=== PATIENT | female | born 1965 | race African-American/Black ===

== ENCOUNTER 2018-01-20 11:07 | Emergency (ER) | payer OTHER, MEDICAID, SELFPAY ==
[2018-01-20 11:13] VITALS: BP 132/81; PULSE 91; RESP 16; TEMP 36.7; O2SAT 100; BMI 21.9
--- NOTE | 2018-01-20 11:25 | ED.HA ---
HPI - Headache General Chief Complaint: Headache Stated Complaint: MIGRAINE Time Seen by Provider: 01/20/18 11:25 Source: patient Mode of arrival: ambulatory Limitations: no limitations History of Present Illness HPI Narrative: Patient is a 53-year-old female with history of migraine headaches. She feels like this is a typical migraine headache she normally gets Toradol for a however does not have it. She denies any weakness no visual problems, no facial droop. Related Data Home Medications Medication Instructions Recorded Confirmed calcium carbonate [Tums] 500 mg PO BIDP PRN #0 05/27/17 01/20/18 lactulose 20 gm PO QDAY #0 05/27/17 01/20/18 amitriptyline 100 mg PO BEDTIME 01/20/18 01/20/18 citalopram 10 mg PO BID 01/20/18 01/20/18 diazepam 10 mg PO DIRECTED 01/20/18 01/20/18 gabapentin 300 mg PO DIRECTED 01/20/18 01/20/18 ketorolac 1 dose IM DIRECTED 01/20/18 01/20/18 trazodone 200 mg PO BEDTIME 01/20/18 01/20/18 Previous Rx's Medication Instructions Recorded albuterol sulfate [Ventolin HFA] 2 puff INH QIDP PRN #2 ea 07/30/17 polyethylene glycol 3350 [Miralax] 17 gm PO QDAY #1 bot 07/30/17 potassium chloride 10 meq PO QDAY #30 cap 07/30/17 [LDN] 1.5 mg PO HS #60 cap 09/16/17 baclofen 10 mg PO BID PRN #60 tab 09/16/17 docusate sodium 250 mg PO BID #60 cap 09/16/17 omeprazole 40 mg PO QDAY #90 cap 09/16/17 pramipexole [Mirapex] 0.25 mg PO QPM #30 tab 09/16/17 meclizine 25 mg PO TIDP PRN #60 tab 11/02/17 ranitidine 150 mg capsule 150 mg PO BID #60 cap 11/27/17 carisoprodol 350 mg tablet 350 mg PO TID PRN #90 tab MDD 4/day 12/02/17 tramadol 50 mg tablet 100 mg PO Q6HP PRN #240 tab 12/02/17 ondansetron [Zofran ODT] 4 mg SUBLINGUAL Q6HP PRN #15 odt 12/30/17 lidocaine viscous/antacid 10 ml PO QID PRN #120 ml 12/31/17 lorazepam 1 mg tablet 1 mg PO BIDP PRN #30 tab 12/31/17 oxycodone 5 mg tablet 5 mg PO Q6HP PRN #120 tab 12/31/17 Allergies Allergy/AdvReac Type Severity Reaction Status Date / Time droperidol [DROPERIDOL] Allergy Severe throat Verified 12/31/17 14:12 swelling sumatriptan [From IMITREX] Allergy Severe throat Verified 12/31/17 14:12 swelling prochlorperazine Allergy Unknown Verified 12/31/17 14:12 [From COMPAZINE] Review of Systems Review of Systems GENERAL: Denies chills, fatigue, malaise, fever, sweats, travel HEENT: Denies sinus pain, ear pain, sore throat, difficulty swallowing, neck pain RESPIRATORY: Denies dyspnea, cough, wheezing, hemoptysis, sputum. CARDIOVASCULAR: Denies chest pain, palpitations, orthopnea, edema GASTROINTESTINAL: Denies nausea, vomiting, abdominal pain, diarrhea, constipation, melena. : Denies dysuria, frequency, incontinence, hematuria, urinary retention, flank pain. MUSCULOSKELETAL: Denies weakness, joint pain, or bony pain SKIN: No rash, no erythema, no pruritus NEUROLOGIC: See HPI PSYCHIATRIC: No concerning psychosocial issues. 12 point review of systems is negative except for those stated above and HPI [facility] Social History Smoking Status: Current some day smoker Exam Initial Vital Signs Initial Vital Signs: Vital Signs Temperature 98.1 F 01/20/18 11:13 Pulse Rate 91 H 01/20/18 11:13 Respiratory Rate 16 01/20/18 11:13 Blood Pressure 132/81 H 01/20/18 11:13 Pulse Oximetry 100 01/20/18 11:13 GENERAL: A thin chronically ill female appears older than stated age HEENT: Head atraumatic,EOMI, pupils reactive, face symmetric, neck is supple no meningeal sign CARDIOVASCULAR: Regular rate and rhythm without murmurs, rubs or gallops. RESPIRATORY: Breath sounds equal bilaterally, no wheezes rales or rhonchi. ABDOMEN: Soft, nontender. Normoactive bowel sounds all 4 quadrants. No guarding or rebound. EXTREMITIES: Normal range of motion, no clubbing or edema. Neurovascularly intact NEUROLOGICAL: Alert and oriented x4.Normal gait and speech. Cranial nerves II through XII grossly intact. Gait and speech normal in the ED strength equal in all extremities SKIN: Warm, dry, no laceration, no petechiae, no rashes or lesions. Course Orders Ordered: Discontinued Medications Hydromorphone HCl (Dilaudid) 1 mg IV NOW ONE Stop: 01/20/18 13:25 Last Admin: 01/20/18 13:28 Dose: 1 mg Hydromorphone HCl (Dilaudid) 0.5 mg IV NOW ONE Stop: 01/20/18 14:15 Last Admin: 01/20/18 14:19 Dose: 0.5 mg Sodium Chloride (Normal Saline 0.9%) 1,000 mls @ 1,000 mls/hr IV BOLUS ONE Stop: 01/20/18 13:39 Last Admin: 01/20/18 12:43 Dose: 1,000 mls/hr Sodium Chloride (Normal Saline 0.9%) 1,000 mls @ 1,000 mls/hr IV BOLUS ONE Stop: 01/20/18 13:29 Last Admin: 01/20/18 14:20 Dose: Ketamine HCl (Ketalar) 5 mg IV NOW ONE Stop: 01/20/18 12:31 Last Admin: 01/20/18 13:26 Dose: Ketorolac Tromethamine (Toradol) 60 mg IM NOW ONE Stop: 01/20/18 11:26 Last Admin: 01/20/18 11:30 Dose: 60 mg Ondansetron HCl (Zofran) 4 mg IV NOW ONE Stop: 01/20/18 12:40 Last Admin: 01/20/18 12:43 Dose: 4 mg Vital Signs - 8 hr 01/20/18 11:13 01/20/18 12:08 01/20/18 14:28 Temperature 98.1 F Pulse Rate 91 H 88 79 Respiratory Rate 16 14 16 Blood Pressure 132/81 H 171/95 H Blood Pressure [Right Arm] 188/81 H Pulse Oximetry 100 99 100 MDM - Headache MDM Narrative Medical decision making narrative: Patient id not have much improvement with Toradol. At this time IV placed Dilaudid is given. She has a ride home caregiver with her Discharge Plan Departure Patient Disposition: Home, Self-Care Clinical Impression: Migraine Discharge Date/Time: 01/20/18 14:29 Interventions: ED Discharge Assessment Last Done: 01/20/18 14:28 Instructions: DI for Migraine Activity Restrictions/Additional Instructions: *You have been diagnosed with Migraine *Continue to take medications as directed *Follow up with your primary care provider in 2-3 days *Return to ER if you should have any new, worsening or concerning symptoms Prescriptions: No Action carisoprodol 350 mg tablet 350 mg PO TID MDD 4/day PRN (Reason: ms pain) Qty: 90 RF: 3 tramadol 50 mg tablet 100 mg PO Q6HP PRN (Reason: pain) Qty: 240 RF: 3 lidocaine viscous/antacid 10 ml PO QID PRN (Reason: upset stomach) Qty: 120 RF: 0 oxycodone 5 mg tablet 5 mg PO Q6HP PRN (Reason: pain) Qty: 120 RF: 0 lorazepam [Ativan] 1 mg tablet 1 mg PO BIDP PRN (Reason: anxiety) Qty: 30 RF: 3 lactulose 20 GM/30 ML solution 20 gm PO QDAY Qty: 0 RF: 0 calcium carbonate [Tums] 500 MG tablet,chewable 500 mg PO BIDP PRN (Reason: Heartburn) Qty: 0 RF: 0 potassium chloride 10 MEQ capsule, extended release 10 meq PO QDAY Qty: 30 RF: 3 polyethylene glycol 3350 [Miralax] 17 GM powder in packet 17 gm PO QDAY Qty: 1 RF: 3 albuterol sulfate [Ventolin HFA] 90 MCG/PUFF HFA aerosol inhaler 2 puff INH QIDP PRNQty: 2 RF: 3 omeprazole 40 MG capsule,delayed release(DR/EC) 40 mg PO QDAY Qty: 90 RF: 3 [LDN] 1.5 mg PO HS Qty: 60 RF: 3 docusate sodium 250 MG capsule 250 mg PO BID Qty: 60 RF: 3 baclofen 10 MG tablet 10 mg PO BID PRNQty: 60 RF: 3 pramipexole [Mirapex] 0.25 MG tablet 0.25 mg PO QPM Qty: 30 RF: 3 meclizine 25 MG tablet,chewable 25 mg PO TIDP PRNQty: 60 RF: 1 ranitidine HCl 150 mg capsule 150 mg PO BID Qty: 60 RF: 0 ondansetron [Zofran ODT] 4 mg tablet,disintegrating 4 mg Sublingual Q6HP PRNQty: 15 RF: 1 citalopram 10 mg tablet 10 mg PO BID RF: 0 ketorolac 60 mg/2 mL solution 1 dose IM DIRECTED RF: 0 amitriptyline 100 mg tablet 100 mg PO BEDTIME RF: 0 trazodone 100 MG tablet 200 mg PO BEDTIME RF: 0 gabapentin 300 mg capsule 300 mg PO DIRECTED RF: 0 diazepam 10 MG tablet 10 mg PO DIRECTED RF: 0 Referrals: Lisa Michael PA-C [Primary Care Provider] -
[2018-01-20] MEDS: KETOROLAC 60 MG/2 ML VIAL IM (11:30)
[2018-01-20 12:08] VITALS: BP 188/81; PULSE 88; RESP 14; O2SAT 99
[2018-01-20] MEDS: ONDANSETRON 4 MG/2 ML INJ IV (12:43)
[2018-01-20] MEDS: SODIUM CHLORIDE 0.9% 1,000 ML 1000 ML IV (12:43)
[2018-01-20] MEDS: HYDROMORPHONE 2 MG INJ 1 MG IV (13:28)
[2018-01-20] MEDS: HYDROMORPHONE 1 MG INJ 0.5 MG IV (14:19)
[2018-01-20 14:28] VITALS: BP 171/95; PULSE 79; RESP 16; O2SAT 100
== END 2018-01-20 14:29 | disposition home or self-care (01) ==
PROVIDERS: Emergency Provider Emergency Medicine; Family Provider Physician Assistant; PCP Physician Assistant
DX: G43.909 Migraine, unspecified, not intractable, without status migrainosus (principal)
CPT/HCPCS: 96361; 96372; 96374; 96375; 96376; 99282; 99284; J1170; J1885; J2405

== ENCOUNTER → 2018-12-13 12:33 | Outpatient (CLI) | payer OTHER, MEDICAID, SELFPAY ==
[2018-12-13 13:15] LABS: Add Manual Diff / Slide Review NO; Basophils Absolute Auto 0 /uL (0-100); Basophils Percent Auto 0.4 % (0-2); Eosinophils Absolute Auto 100 /uL (0-450); Eosinophils Percent Auto 0.8 % (2-4); Hematocrit 35.2 % (36-46); Hemoglobin 11.7 g/dL (12.0-16.0); Lymphocytes Absolute Auto 1400 /uL (1100-4500); Lymphocytes Percent Auto 13.8 % (25-40); Mean Corpuscular HGB Conc 33.2 % (30-36); Mean Corpuscular Hemoglobin 29.8 PG (26-34); Mean Corpuscular Volume 89.7 fL (80-100); Monocytes Absolute Auto 700 /uL (0-900); Neutrophils Absolute Auto 8100 /uL (1500-7000); Platelet Count 617 X10^3/uL (150-400); Red Blood Cell Count 3.92 X10^6/uL (4.0-5.2); Red Cell Distribution Width 17.2 % (11.6-14.8); White Blood Cell Count 10.3 X10^3/uL (4.5-11.0)
[2018-12-13 13:39] LABS: Erythrocyte Sedimentation Rate 37 MM/HR (0-20)
[2018-12-13 14:00] LABS: Alanine Aminotransferase 42 IU/L (9-52); Albumin 4.4 g/dL (3.5-5.0); Albumin Globulin Ratio 1.1 (1.0-2.8); Alkaline Phosphatase 133 U/L (38-126); Aspartate Aminotransferase 58 IU/L (14-36); BUN Creatinine Ratio 21.1 (6-22); Bilirubin Total 0.5 mg/dL (0.2-1.3); Blood Urea Nitrogen 19 mg/dL (7-17); Calcium 9.3 mg/dL (8.4-10.2); Carbon Dioxide 31 mmol/L (22-32); Chloride 93 mmol/L (98-107); Cholesterol 197 mg/dL (140-199); Estimated Glomerular Filt Rate > 60.0 mL/min (>60); Globulin 3.9 g/dL (1.7-4.1); Glucose 105 mg/dL (70-100); HDL Cholesterol 96 mg/dL (40-60); HEMOLYSIS 17 (0-50); LDL Cholesterol Calculated 89 mg/dL (<100); Potassium 2.9 mmol/L (3.4-5.1); Sodium 135 mmol/L (137-145); Total Protein 8.3 g/dL (6.3-8.2); Triglycerides 60 mg/dL (35-150)
[2018-12-13 16:55] LABS: Thyroid Stimulating Hormone 0.96 uIU/mL (0.47-4.68)
== END ==
PROVIDERS: PCP Family Medicine; Visit Provider Family Medicine
DX: G89.4 Chronic pain syndrome (principal); I10 Essential (primary) hypertension; K29.21 Alcoholic gastritis with bleeding; F10.20 Alcohol dependence, uncomplicated; J45.909 Unspecified asthma, uncomplicated; K21.0 Gastro-esophageal reflux disease with esophagitis; K44.9 Diaphragmatic hernia without obstruction or gangrene; M79.7 Fibromyalgia; G43.709 Chronic migraine without aura, not intractable, without status migrainosus; Z79.899 Other long term (current) drug therapy
CPT/HCPCS: 36415; 80053; 80061; 84443; 85025; 85651

== ENCOUNTER 2019-04-05 18:26 | Emergency (ER) | payer OTHER, MEDICAID, SELFPAY ==
--- NOTE | 2019-04-05 18:38 | ED.SEIZURE ---
HPI - Seizure General Chief Complaint: Seizure Stated Complaint: HAD A SEIZURE BAD MIGRAINE Time Seen by Provider: 04/05/19 18:38 Source: patient Mode of arrival: Ambulatory Limitations: altered mental status History of Present Illness HPI Narrative: The patient arrives with complaints of multiple seizures. She apparently had a tonic-clonic seizure about 2 hours ago, and another seizure while being transported to this ER by POV by her friend. That event was 20 minutes ago. She is currently alert and talking, but seemingly confused. She has a history of MS. She also complains of a headache and has a history of migraine headaches. At this time she is a poor historian. Her friends thinks she is still recovering. She had missed been noncompliant with seizure medications. She initially, when questioned, identified Depakote as her seizure medication that she does not take. Medical records from [facility] in [place], [place] indicated she is supposed to be taking Keppra. She is aware she is in a hospital. She is currently disoriented to which hospital, month and year. She recognizes her friend and states her name. She denies recent illness. She is not using alcohol or drugs. Related Data Home Medications Medication Instructions Recorded Confirmed calcium carbonate [Tums] 500 mg PO BIDP PRN #0 05/27/17 03/04/19 cholecalciferol (vitamin D3) 50,000 unit PO QWEEK 04/22/18 03/04/19 50,000 unit capsule lactulose 10 gram oral packet 20 gram PO BID 04/22/18 03/04/19 mineral oil See Rx Instructions MN .COMPLEX 04/22/18 03/04/19 promethazine 25 mg tablet 25 mg PO Q6H PRN tab 04/22/18 03/04/19 potassium chloride 10 mEq 10 meq PO DAILY 12/15/18 03/04/19 tablet,extended release Previous Rx's Medication Instructions Recorded polyethylene glycol 3350 [Miralax] 17 gm PO QDAY #1 bot 07/30/17 ranitidine HCl 150 mg capsule 150 mg PO BID #60 cap 11/27/17 ondansetron [Zofran ODT] 4 mg SUBLINGUAL Q6HP PRN #15 odt 12/30/17 lidocaine viscous/antacid 10 ml PO QID PRN #120 ml 12/31/17 Ensure Vanilla #90 each 04/09/18 albuterol sulfate 90 mcg/actuation 2 puff INHALATION QIDP PRN #2 ea 11/08/18 aerosol inhaler citalopram 20 mg tablet 20 mg PO DAILY #90 tab 11/08/18 dihydroergotamine 0.5 mg/pump act. 1 spray NASAL .COMPLEX #8 ml 11/08/18 (4 mg/mL) nasal spray docusate sodium 250 mg capsule 250 mg PO BID #60 cap 11/08/18 ferrous sulfate 325 mg (65 mg 325 mg PO DAILY #30 tab 11/08/18 iron) tablet fluticasone propionate 50 1 spray NASAL DAILY #18.2 gram 11/08/18 mcg/actuation nasal spray,suspension meclizine 25 mg chewable tablet 25 mg PO DAILY PRN #30 tab 11/08/18 pramipexole 0.25 mg tablet 0.25 mg PO QPM #30 tab 11/08/18 trazodone 100 mg tablet 200 mg PO BEDTIME PRN #60 tab 11/08/18 diazepam 10 mg tablet See Rx Instructions PO .COMPLEX 12/13/18 PRN #30 tab lidocaine HCl 2 % mucosal solution 15 ml MM BID-QID PRN #100 ml 12/13/18 omeprazole 40 mg capsule,delayed 40 mg PO DAILY #30 cap 12/13/18 release fremanezumab-vfrm 225 mg/1.5 mL 225 mg SUBCUT QMONTH #1.5 ml 01/21/19 subcutaneous syringe zonisamide 25 mg capsule 25 mg PO DAILY #120 cap 01/21/19 phenytoin sodium extended 100 mg 200 mg PO BID #60 cap 02/28/19 capsule gabapentin 300 mg capsule 300 mg PO Q12H #180 cap 03/04/19 rizatriptan 10 mg tablet 10 mg PO ONCE #10 tab 03/04/19 Allergies Allergy/AdvReac Type Severity Reaction Status Date / Time droperidol [DROPERIDOL] Allergy Severe throat Verified 03/04/19 13:33 swelling sumatriptan [From IMITREX] Allergy Severe throat Verified 03/04/19 13:33 swelling prochlorperazine Allergy Unknown Verified 03/04/19 13:33 [From COMPAZINE] Iodine and Iodide Containing Allergy Verified 03/04/19 13:33 Produc Review of Systems Constitutional Constitutional: Denies chills, Denies fever(s), Denies lethargy and Reports weakness Comments: No recent illness. Complains of global headache. Eyes Eyes: Reports change in vision, Denies eye discharge and Denies irritation ENT Ears, Nose, Mouth, and Throat: Denies change in voice, Denies vertigo, Denies dizziness, Denies neck pain and Denies sore throat Cardiovascular Cardiovascular: Denies chest pain, Denies irregular heart rhythm, Denies lightheadedness, Denies palpitations, Denies dyspnea, Denies dyspnea on exertion and Denies orthopnea Respiratory Respiratory: Denies cough, Denies dyspnea, Denies dyspnea on exertion and Denies wheezing Gastrointestinal Gastrointestinal: Denies abdominal pain, Denies change in bowel habits, Denies diarrhea, Denies nausea and Denies vomiting Genitourinary Genitourinary: Denies dysuria Musculoskeletal Musculoskeletal: Denies back pain, Reports myalgias and Denies neck pain Integumentary/Breasts Skin/Breast: Denies pruritus, Denies erythema, Denies rash and Denies wounds Neurologic Neurologic: Reports confusion, Denies vertigo, Denies dizziness and Reports weakness Psychiatric Psychiatric: Denies anxiety and Reports confusion Endocrine Endocrine: Denies palpitations Allergic/Immunologic Allergic/Immunologic: Denies wheezing PENDING SALE TO [facility] Medical History ADHD (attention deficit hyperactivity disorder) (Chronic Unknown) Anxiety (Chronic Unknown) Chronic pain (Chronic ~04/2017) Depression (Chronic Unknown) Fibromyalgia (Chronic ~04/2017) Generalized headaches (Chronic Unknown) Hiatal hernia with GERD and esophagitis (Acute ~08/2017) History of alcoholism (Resolved Unknown) Migraines (Chronic Unknown) Multiple sclerosis (Chronic Unknown) Personality disorder (Chronic Unknown) Pneumonia (Resolved 04/2017) Seizure disorder (Chronic Unknown) TIA (transient ischemic attack) (Resolved Unknown) Surgical History History of esophagogastroduodenoscopy (EGD) (Resolved 07/2017) Hx of appendectomy (Resolved) Hx of section (Resolved) Family History Father Mental health problem Social History Smoking Status: Current some day smoker alcohol intake: current substance use type: does not use and marijuana Family History Father Mental health problem Social History Smoking Status: Current some day smoker alcohol intake: current substance use type: does not use and marijuana Exam Initial Vital Signs Initial Vital Signs: Vital Signs Temperature 99.1 F 04/05/19 18:42 Pulse Rate 94 H 04/05/19 18:42 Respiratory Rate 16 04/05/19 18:42 Blood Pressure 103/70 04/05/19 18:42 Pulse Oximetry 100 04/05/19 18:42 Const General: cooperative and well developed Nutritional Appearance: well nourished Orientation: alert, awake and oriented x3 HENMT Head: normocephalic and atraumatic Ears: external ears normal and TM's normal bilaterally Nose: external nose normal and No nasal discharge Face and sinus: sinuses nontender, face symmetric, no sinus tenderness and No dry mucous membranes Mouth: oral mucosae normal and moist mucous membranes Teeth and gingiva: dentition normal Throat: tonsils normal and uvula midline Eyes General: appearance normal, both eyes and all related structures Eyelids: eyelids normal Conjunctivae: conjunctivae normal Sclera: sclerae normal Pupils: PERRL EOM: EOM intact bilaterally Neck Neck: normal visual inspection, No no meningeal signs, trachea midline, No lymphadenopathy, No midline deformity and No JVD Chest Chest: normal inspection of the chest Resp Effort & Inspection: normal respiratory effort, able to speak in complete sentences, no respiratory distress and no use of accessory muscles Auscultation: clear to auscultation bilaterally, no rales, no rhonchi and no wheezes Cardio Rate: regular rate Rhythm: regular rhythm Heart Sounds: no click, no gallops, no murmurs and no rubs Pulses: normal peripheral pulses GI Inspection: non-distended Palpation: soft, no hepatosplenomegaly, No guarding, No pulsatile mass and No tender Auscultation: normal bowel sounds Back/Spine/Pelvis Back: No CVA tenderness Skin General: no rashes or lesions noted and No petechiae Neuro General: alert, oriented x3, gait normal and other (4/5 weakness on her right side.) Speech: speech normal Extrem General: full ROM, no clubbing, cyanosis or edema, no pedal edema and no calf tenderness Psych Appearance: well kempt Mental Status: mental status grossly normal Mood: irritable mood Attitude: cooperative Thought Content: normal and suicidality Judgment: judgment good Course Course Course Narrative: The patient was initially given Toradol for the headache, Ativan 2 mg IV to protect against potential seizure activity. No seizure activity occurred. After reviewing records from [facility], Keppra 1 g p.o. was given. It is noted she has record indicating multiple potential medications for seizure prevention. She is noncompliant with all medications. After receiving the Toradol, she complained of ongoing headache. She became verbally aggressive with her nurse, at times yelling out of her room. The patient and her friend both indicated minimal relationship with the [facility]. She was last seen here about 2 years ago, she has been seen at [facility] 13 times this year alone. Head CT is normal. Lab evaluation is normal including a normal prolactin level. I emphasized with the patient she needs to follow up with her regular doctor, and hopefully arrive out a plan to help diminish the urgency behind all these ER visits. She received Dilaudid in addition to the Toradol. There has been no suggestion of seizure activity. She was ambulatory in the room prior to departure. Orders Ordered: ED Orders 04/05/19 18:59 CT head/brain wo con Stat 04/05/19 19:24 Basic Metabolic Panel Stat Complete Blood Count AUTO DIFF Stat Magnesium Stat Prolactin Stat 04/05/19 20:00 Urinalysis Sreen (Dip Only) Stat Urine Drug Screen, Rapid Stat Urine Microscopic Stat Discontinued Medications Hydromorphone HCl (Dilaudid) 2 mg IM NOW ONE Stop: 04/05/19 20:29 Last Admin: 04/05/19 20:35 Dose: 2 mg Documented by: BTONER Ketorolac Tromethamine (Toradol) 60 mg IM NOW ONE Stop: 04/05/19 18:57 Last Admin: 04/05/19 19:14 Dose: 60 mg Documented by: BTONER Levetiracetam (Keppra) 1,000 mg PO NOW ONE Stop: 04/05/19 19:09 Last Admin: 04/05/19 19:42 Dose: 1,000 mg Documented by: BTONER Lorazepam (Ativan) 2 mg PO NOW ONE Stop: 04/05/19 18:57 Lorazepam (Ativan) 2 mg IM NOW ONE Stop: 04/05/19 19:02 Last Admin: 04/05/19 19:13 Dose: 2 mg Documented by: JAKOBONER Vital Signs Vital signs: Vital Signs - 8 hr 04/05/19 19:14 04/05/19 20:31 04/05/19 21:21 Temperature 99.1 F Pulse Rate 100 H 99 H Respiratory Rate 16 16 Blood Pressure [Left Arm] 103/67 103/67 Pulse Oximetry 98 97 MDM - Seizure Lab Data Result diagrams: 04/05/19 19:24 04/05/19 19:24 Labs: Lab Results 04/05/19 04/05/19 04/05/19 Range/Units 19:24 19:24 20:00 WBC 10.7 (4.5-11.0) X10^3/uL RBC 3.18 L (4.0-5.2) X10^6/uL Hgb 8.4 L (12.0-16.0) g/dL Hct 26.0 L (36-46) % MCV 82.0 (80-100) fL MCH 26.5 (26-34) PG MCHC 32.3 (30-36) % RDW 18.9 H (11.6-14.8) % Plt Count 439 H (150-400) X10^3/uL Neut % (Auto) 87.6 H (50-75) % Lymph % (Auto) 8.6 L (25-40) % [place] % (Auto) 1.1 L (3-14) % Eos % (Auto) 2.1 (2-4) % Baso % (Auto) 0.6 (0-2) % Neut # (Auto) 9400 H (0938-1804) /uL Lymph # (Auto) 900 L (0835-0260) /uL [place] # (Auto) 100 (0-900) /uL Eos # (Auto) 200 (0-450) /uL Baso # (Auto) 100 (0-100) /uL Sodium 139 (137-145) mmol/L Potassium 3.3 L (3.4-5.1) mmol/L Chloride 105 (98-107) mmol/L Carbon Dioxide 28 (22-32) mmol/L BUN 9 (7-17) mg/dL Creatinine 0.60 (0.52-1.04) mg/dL Estimated GFR > 60.0 (>60) mL/min BUN/Creatinine Ratio 15.0 (6-22) Glucose 59 L (70-100) mg/dL Calcium 8.2 L (8.4-10.2) mg/dL Magnesium 1.7 (1.6-2.3) mg/dL Prolactin 8.9 (3.0-18.6) ng/mL Urine Color Yellow Urine Appearance Clear Urine pH 7.0 (4.5-8.0) Ur Specific [place] 1.010 (1.000-1.035) Urine Protein Negative (Negative) Urine Glucose (UA) Negative (Negative) g/dL Urine Ketones Negative (NEGATIVE) Urine Occult Blood Negative (Negative) Urine Nitrate Negative (Negative) Urine Bilirubin Negative (NEGATIVE) Urine Urobilinogen 0.2 (0.2) E.U./dL Ur Leukocyte Esterase Trace H (NEGATIVE) Urine RBC None seen (0-5/HPF) Urine WBC 1-5/hpf (0-5/HPF) Ur Squamous Epith Cells >30 /hpf H (0-5/HPF) Urine Bacteria None seen (None) Urine Mucus 2+ H (Negative) Ur Culture Indicated? Cult not indicated Urine Opiates Screen (Negative) Ur Oxycodone Screen (Negative) Urine Methadone Screen (Negative) Ur Barbiturates Screen (Negative) U Tricyclic Antidepress (Negative) Ur Phencyclidine Scrn (Negative) Ur Amphetamines Screen (Negative) U Methamphetamines Scrn (Negative) Ur MDMA Scrn (Ecstasy) (Negative) U Benzodiazepines Scrn (Negative) Urine Cocaine Screen (Negative) U Marijuana (THC) Screen (Negative) 04/05/19 Range/Units 20:00 WBC (4.5-11.0) X10^3/uL RBC (4.0-5.2) X10^6/uL Hgb (12.0-16.0) g/dL Hct (36-46) % MCV (80-100) fL MCH (26-34) PG MCHC (30-36) % RDW (11.6-14.8) % Plt Count (150-400) X10^3/uL Neut % (Auto) (50-75) % Lymph % (Auto) (25-40) % [place] % (Auto) (3-14) % Eos % (Auto) (2-4) % Baso % (Auto) (0-2) % Neut # (Auto) (2683-0982) /uL Lymph # (Auto) (4816-5111) /uL [place] # (Auto) (0-900) /uL Eos # (Auto) (0-450) /uL Baso # (Auto) (0-100) /uL Sodium (137-145) mmol/L Potassium (3.4-5.1) mmol/L Chloride (98-107) mmol/L Carbon Dioxide (22-32) mmol/L BUN (7-17) mg/dL Creatinine (0.52-1.04) mg/dL Estimated GFR (>60) mL/min BUN/Creatinine Ratio (6-22) Glucose (70-100) mg/dL Calcium (8.4-10.2) mg/dL Magnesium (1.6-2.3) mg/dL Prolactin (3.0-18.6) ng/mL Urine Color Urine Appearance Urine pH (4.5-8.0) Ur Specific [place] (1.000-1.035) Urine Protein (Negative) Urine Glucose (UA) (Negative) g/dL Urine Ketones (NEGATIVE) Urine Occult Blood (Negative) Urine Nitrate (Negative) Urine Bilirubin (NEGATIVE) Urine Urobilinogen (0.2) E.U./dL Ur Leukocyte Esterase (NEGATIVE) Urine RBC (0-5/HPF) Urine WBC (0-5/HPF) Ur Squamous Epith Cells (0-5/HPF) Urine Bacteria (None) Urine Mucus (Negative) Ur Culture Indicated? Urine Opiates Screen Negative (Negative) Ur Oxycodone Screen Negative (Negative) Urine Methadone Screen Negative (Negative) Ur Barbiturates Screen Negative (Negative) U Tricyclic Antidepress Positive H (Negative) Ur Phencyclidine Scrn Negative (Negative) Ur Amphetamines Screen Negative (Negative) U Methamphetamines Scrn Negative (Negative) Ur MDMA Scrn (Ecstasy) Negative (Negative) U Benzodiazepines Scrn Positive H (Negative) Urine Cocaine Screen Negative (Negative) U Marijuana (THC) Screen Positive H (Negative) Urine Dip Bedside Urine Glucose Negative Bedside Urine Bilirubin - Negative Bedside Urine Ketone - Negative Urine Specific [place] 1.010 Bedside Urine Occult Blood - Negative Bedside Urine pH 7.0 Bedside Urine Protein - Negative Bedside Urine Urobilinogen - Negative Bedside Urine Nitrite - Negative Bedside Urine Leukocytes - Negative Esterase Imaging Data CT scan - head: Radiologist's impression: Normal Discharge Plan Departure Patient Disposition: Home Clinical Impression: Seizure Headache Qualifiers: Headache type: unspecified Headache chronicity pattern: acute headache Intractability: not intractable Qualified Code(s): R51 - Headache Discharge Date/Time: 04/05/19 21:25 Instructions: DI for Seizure Disorder -- Adult Activity Restrictions/Additional Instructions: Follow up with her regular doctor regarding a plan for management of seizures, and a management headaches. Return to the ER as needed. Prescriptions: No Action lidocaine viscous/antacid 10 ml PO QID PRN (Reason: upset stomach) Qty: 120 RF: 0 (DME) Ensure Vanilla Qty: 90 RF: 12 cholecalciferol (vitamin D3) 50,000 unit capsule 50,000 unit PO QWEEK RF: 0 lactulose 10 gram packet 20 gram PO BID RF: 0 mineral oil enema See Rx Instructions MN .COMPLEX RF: 0 promethazine 25 mg tablet 25 mg PO Q6H PRNRF: 0 calcium carbonate [Tums] 500 MG tablet,chewable 500 mg PO BIDP PRN (Reason: Heartburn) Qty: 0 RF: 0 polyethylene glycol 3350 [Miralax] 17 GM powder in packet 17 gm PO QDAY Qty: 1 RF: 3 ranitidine HCl 150 mg capsule 150 mg PO BID Qty: 60 RF: 0 ondansetron [Zofran ODT] 4 mg tablet,disintegrating 4 mg Sublingual Q6HP PRNQty: 15 RF: 1 potassium chloride 10 mEq tablet extended release 10 meq PO DAILY RF: 0 phenytoin sodium extended 100 mg capsule 200 mg PO BID Qty: 60 RF: 0 albuterol sulfate [Ventolin HFA] 90 mcg/actuation HFA aerosol inhaler 2 puff INHALATION QIDP PRN (Reason: shortness of breath or wheezing) Qty: 2 RF: 3 citalopram [Celexa] 20 mg tablet 20 mg PO DAILY Qty: 90 RF: 1 dihydroergotamine [Migranal] 0.5 mg/pump act. (4 mg/mL) spray,non-aerosol 1 spray NASAL .COMPLEX Qty: 8 RF: 11 docusate sodium 250 mg capsule 250 mg PO BID Qty: 60 RF: 3 ferrous sulfate [FeroSul] 325 mg (65 mg iron) tablet 325 mg PO DAILY Qty: 30 RF: 5 fluticasone propionate [Flonase Allergy Relief] 50 mcg/actuation spray,suspension 1 spray NASAL DAILY Qty: 18.2 RF: 0 meclizine 25 mg tablet,chewable 25 mg PO DAILY PRN (Reason: dizziness) Qty: 30 RF: 2 pramipexole [Mirapex] 0.25 mg tablet 0.25 mg PO QPM Qty: 30 RF: 3 trazodone 100 mg tablet 200 mg PO BEDTIME PRN (Reason: insomnia) Qty: 60 RF: 5 diazepam 10 mg tablet See Rx Instructions PO .COMPLEX PRN (Reason: anxiety) Qty: 30 RF: 0 omeprazole 40 mg capsule,delayed release(DR/EC) 40 mg PO DAILY Qty: 30 RF: 2 lidocaine HCl [Lidocaine Viscous] 2 % solution 15 ml MM BID-QID PRN (Reason: mouth pain) Qty: 100 RF: 2 gabapentin 300 mg capsule 300 mg PO Q12H Qty: 180 RF: 0 rizatriptan 10 mg tablet 10 mg PO ONCE Qty: 10 RF: 3 Ajovy 225 mg/1.5 mL syringe 225 mg SUBCUT QMONTH Qty: 1.5 RF: 11 zonisamide 25 mg capsule 25 mg PO DAILY Qty: 120 RF: 2 Referrals: Sonya Short DO [Primary Care Provider] -
[2019-04-05 18:42] VITALS: BP 103/70; PULSE 94; RESP 16; TEMP 37.3; O2SAT 100; BMI 23.6
--- NOTE | 2019-04-05 18:59 | DI.CT.S_ITS ---
PROCEDURE: CT HEAD/BRAIN WO CON INDICATIONS: Recurrent seizures TECHNIQUE: Noncontrast 4.5 mm thick angled axial sections acquired from the foramen magnum to the vertex, with coronal and sagittal reformats. For radiation dose reduction, the following was used: automated exposure control, adjustment of mA and/or kV according to patient size. COMPARISON: None. FINDINGS: Image quality: Excellent. CSF spaces: Basal cisterns are patent. No extra-axial fluid collections. Ventricles are normal in size and shape. Brain: No midline shift. No intracranial masses or hemorrhage. Moreno-white matter interface is normal. Skull and face: Calvarium and visualized facial bones are intact, without suspicious lesions. Sinuses: Visualized sinuses and mastoids are clear. IMPRESSION: No acute intracranial abnormality demonstrated. Dictated by: Eugenio Danielson M.D. on 04/05/2019 at 20:06 Approved by: Eugenio Danielson M.D. on 04/05/2019 at 20:07
[2019-04-05] MEDS: LORazepam 2 MG/ML INJ IM (19:13)
[2019-04-05 19:14] VITALS: TEMP 37.3
[2019-04-05] MEDS: KETOROLAC 60 MG/2 ML VIAL IM (19:14)
[2019-04-05 19:32] LABS: Add Manual Diff / Slide Review NO; Basophils Absolute Auto 100 /uL (0-100); Basophils Percent Auto 0.6 % (0-2); Eosinophils Absolute Auto 200 /uL (0-450); Eosinophils Percent Auto 2.1 % (2-4); Hemoglobin 8.4 g/dL (12.0-16.0); Lymphocytes Absolute Auto 900 /uL (1100-4500); Lymphocytes Percent Auto 8.6 % (25-40); Mean Corpuscular HGB Conc 32.3 % (30-36); Mean Corpuscular Hemoglobin 26.5 PG (26-34); Monocytes Absolute Auto 100 /uL (0-900); Monocytes Percent Auto 1.1 % (3-14); Neutrophils Absolute Auto 9400 /uL (1500-7000); Neutrophils Percent Auto 87.6 % (50-75); Platelet Count 439 X10^3/uL (150-400); Red Blood Cell Count 3.18 X10^6/uL (4.0-5.2); Red Cell Distribution Width 18.9 % (11.6-14.8); White Blood Cell Count 10.7 X10^3/uL (4.5-11.0)
[2019-04-05] MEDS: levETIRAcetam 250 MG TABLET 1000 MG PO (19:42)
[2019-04-05 19:50] LABS: Blood Urea Nitrogen 9 mg/dL (7-17); Calcium 8.2 mg/dL (8.4-10.2); Carbon Dioxide 28 mmol/L (22-32); Chloride 105 mmol/L (98-107); Estimated Glomerular Filt Rate > 60.0 mL/min (>60); Glucose 59 mg/dL (70-100); HEMOLYSIS < 15 (0-50); Magnesium 1.7 mg/dL (1.6-2.3); Potassium 3.3 mmol/L (3.4-5.1); Sodium 139 mmol/L (137-145)
[2019-04-05 20:07] LABS: Prolactin 8.9 ng/mL (3.0-18.6)
--- NOTE | 2019-04-05 20:10 | PC.NURSE ---
pt was alert and oriented on arrival. states a migraine since yesterday.
--- NOTE | 2019-04-05 20:12 | PC.NURSE ---
pt has requested food, provided 2 saltine packs, 2 mat packs, 1 peanut butter and 2 cranberry juices containers. 1 cup water, 2 cups ice. pt reports pain continues and would like more food.
--- NOTE | 2019-04-05 20:22 | PC.NURSE ---
pt requesting ice and pain medication. reported to dr. ferro.
[2019-04-05 20:23] LABS: Appearance Urine UA CLEAR; Bilirubin Urine UA NEGATIVE (NEGATIVE); Color Urine UA YELLOW; Glucose Urine UA NEGATIVE (Negative); Ketones Urine UA NEGATIVE (NEGATIVE); Leukocyte Esterase Urine UA TRACE (NEGATIVE); Nitrite Urine UA NEGATIVE (Negative); Occult Blood Urine UA NEGATIVE (Negative); Protein Urine UA NEGATIVE (Negative); Urobilinogen Urine UA 0.2 E.U./dL (0.2)
[2019-04-05 20:25] LABS: Bacteria Urine None Seen; RBC Urine None Seen (0-5/HPF)
[2019-04-05 20:30] LABS: Urine Amphetamines Negative (Negative); Urine Barbiturates Negative (Negative); Urine Benzodiazepines Positive (Negative); Urine Cocaine Negative (Negative); Urine MDMA Negative (Negative); Urine Methadone Negative (Negative); Urine Methamphetamines Negative (Negative); Urine Morphine/Opi cutoff 2000 Negative (Negative); Urine Oxycodone Negative (Negative); Urine Phencyclidine Negative (Negative); Urine Tetrahydrocannabinol Positive (Negative); Urine Tricyclic Antidepressant Positive (Negative)
[2019-04-05 20:31] VITALS: BP 103/67; PULSE 100; RESP 16; O2SAT 98
[2019-04-05 20:33] LABS: Culture Indicated Urine Cult Not Indicated; Mucus Urine 2+ (Negative); Squamous Epithelial Cell Urine >30 /HPF (0-5/HPF); WBC Urine 1-5/HPF (0-5/HPF)
[2019-04-05] MEDS: HYDROMORPHONE 1 MG INJ 2 MG IM (20:35)
[2019-04-05 21:21] VITALS: BP 103/67; PULSE 99; RESP 16; O2SAT 97
--- NOTE | 2019-04-05 21:22 | PC.NURSE ---
walked in to discharge pt, she has 2 hospital blankets on her walker, 2 boxes of tissues, i asked excuse me are you taking my blankets, she replied yes. then asked for two paper cups to take home because she likes them for coffee, provided.
== END 2019-04-05 21:25 | disposition home or self-care (01) ==
PROVIDERS: Emergency Provider Emergency Medicine; PCP Family Medicine
DX: R51 Headache (principal); R56.9 Unspecified convulsions
CPT/HCPCS: 36415; 70450; 80048; 80305; 81003; 81015; 83735; 84146; 85025; 96372; 99283; 99284; J1170; J1885; J2060

== ENCOUNTER → 2019-04-08 09:39 | Outpatient (CLI) | payer OTHER, MEDICAID, SELFPAY ==
--- NOTE | 2019-04-08 | DI.CT.S_ITS ---
PROCEDURE: CT HEAD/BRAIN WO CON INDICATIONS: DIZZY AND GIDDY TECHNIQUE: Noncontrast 4.5 mm thick angled axial sections acquired from the foramen magnum to the vertex, with coronal and sagittal reformats. For radiation dose reduction, the following was used: automated exposure control, adjustment of mA and/or kV according to patient size. COMPARISON: [facility], CT, CT HEAD/BRAIN WO CON, 04/05/2019, 19:07. FINDINGS: Image quality: Excellent. CSF spaces: Basal cisterns are patent. No extra-axial fluid collections. The ventricles are stable in size and shape. Brain: No intracranial bleeds or masses. There is cerebral volume loss for age, with resultant ventricular and sulcal prominence. There are periventricular and deep white matter chronic small vessel ischemic changes. There is intracranial internal carotid artery atherosclerosis. Skull and face: Calvarium and visualized facial bones appear intact, without suspicious lesions. Sinuses: Visualized sinuses and mastoids are clear. IMPRESSION: No acute intracranial process. Dictated by: Sage Gardiner M.D. on 04/08/2019 at 10:27 Approved by: Sage Gardiner M.D. on 04/08/2019 at 10:29
== END ==
PROVIDERS: PCP Family Medicine; Visit Provider Family Medicine
DX: R42 Dizziness and giddiness (principal)
CPT/HCPCS: 70450

== ENCOUNTER 2019-04-20 15:15 | Emergency (ER) | payer OTHER, MEDICAID, SELFPAY ==
[2019-04-20 15:16] VITALS: BP 154/89; PULSE 109; RESP 16; TEMP 37.2; O2SAT 96; BMI 19.0
--- NOTE | 2019-04-20 16:33 | ED.NAVMDI ---
HPI - Nausea/Vomiting/Diarrhea General Chief complaint: Nausea/Vomiting/Diarrhea Stated complaint: headache and body aches Time Seen by Provider: 04/20/19 15:41 Source: patient Mode of arrival: Wheelchair Limitations: no limitations History of Present Illness HPI Narrative: Patient comes emergency department complaining of headache and whole body pain. She states that she has a history of migraines and fibromyalgia and that the pain is consistent with both of these. Patient states that she has been pain for 2 days, and that she is feeling anxious and that ?her coping skills are low?. Patient denies any new neurologic deficits. She states that her MS associated neurologic deficits fluctuate in severity and location. Patient states that she also has a history of multiple sclerosis which has been progressively worsening. She lives at home with her and her caregiver. Patient admits to nausea and vomiting since the headache started. Patient denies any symptoms of specific illness. She denies any fever. She states she has not had any cough or dysuria. No back pain. No chest pain or shortness of breath. Patient states that she sees Dr. Gilbert for her multiple sclerosis and migraines. Patient denies any new medications. No other complaints at this time. Related Data Home Medications Medication Instructions Recorded Confirmed calcium carbonate [Tums] 500 mg PO BIDP PRN #0 05/27/17 04/20/19 cholecalciferol (vitamin D3) 50,000 unit PO QWEEK 04/22/18 04/20/19 50,000 unit capsule lactulose 10 gram oral packet 20 gram PO BID 04/22/18 04/20/19 mineral oil See Rx Instructions MA .COMPLEX 04/22/18 04/20/19 promethazine 25 mg tablet 25 mg PO Q6H PRN tab 04/22/18 04/20/19 Previous Rx's Medication Instructions Recorded polyethylene glycol 3350 [Miralax] 17 gm PO QDAY #1 bot 07/30/17 ranitidine HCl 150 mg capsule 150 mg PO BID #60 cap 11/27/17 albuterol sulfate 90 mcg/actuation 2 puff INHALATION QIDP PRN #2 ea 11/08/18 aerosol inhaler docusate sodium 250 mg capsule 250 mg PO BID #60 cap 11/08/18 ferrous sulfate 325 mg (65 mg 325 mg PO DAILY #30 tab 11/08/18 iron) tablet meclizine 25 mg chewable tablet 25 mg PO DAILY PRN #30 tab 11/08/18 trazodone 100 mg tablet 200 mg PO BEDTIME PRN #60 tab 11/08/18 omeprazole 40 mg capsule,delayed 40 mg PO DAILY #30 cap 12/13/18 release fremanezumab-vfrm 225 mg/1.5 mL 225 mg SUBCUT QMONTH #1.5 ml 01/21/19 subcutaneous syringe zonisamide 25 mg capsule 25 mg PO DAILY #120 cap 01/21/19 gabapentin 300 mg capsule 300 mg PO Q12H #180 cap 03/04/19 zolmitriptan 5 mg nasal spray 1 spray NASAL ONCE #6 each 04/25/19 Allergies Allergy/AdvReac Type Severity Reaction Status Date / Time droperidol [DROPERIDOL] Allergy Severe throat Verified 04/25/19 14:03 swelling sumatriptan [From IMITREX] Allergy Severe throat Verified 04/25/19 14:03 swelling prochlorperazine Allergy Unknown Verified 04/25/19 14:03 [From COMPAZINE] Iodine and Iodide Containing Allergy Verified 04/25/19 14:03 Produc Review of Systems Constitutional Constitutional: Denies chills, Denies fatigue, Denies fever(s), Denies frequent falls, Denies lethargy and Denies weakness Eyes Eyes: Denies change in vision, Denies eye discharge, Denies irritation and Denies loss of vision ENT Ears, Nose, Mouth, and Throat: Denies change in voice, Denies dizziness, Denies neck pain, Denies sore throat and Denies throat swelling Cardiovascular Cardiovascular: Denies chest pain, Denies irregular heart rhythm, Denies lightheadedness, Denies palpitations, Denies dyspnea, Denies dyspnea on exertion and Denies orthopnea Respiratory Respiratory: Denies cough, Denies dyspnea, Denies dyspnea on exertion and Denies wheezing Gastrointestinal Gastrointestinal: Denies abdominal pain, Denies change in bowel habits, Denies diarrhea, Reports nausea and Reports vomiting Genitourinary Genitourinary: Denies hematuria, Denies flank pain, Denies urinary incontinence and Denies urinary urgency Musculoskeletal Musculoskeletal: Denies back pain, Denies muscle weakness, Denies neck pain, Denies numbness and Denies tingling Integumentary/Breasts Skin/Breast: Denies pruritus, Denies erythema, Denies rash and Denies wounds Neurologic Neurologic: Denies behavioral changes, Denies confusion, Denies dizziness, Denies frequent falls, Denies loss of vision, Denies numbness, Denies tingling and Denies weakness Comments: Headache, pain in whole body Psychiatric Psychiatric: Denies anxiety, Denies behavioral changes, Denies confusion, Denies depression, Denies homicidal ideation and Denies suicidal ideation Endocrine Endocrine: Denies fatigue, Denies flushing and Denies palpitations Hematologic/Lymphatic Hematologic/Lymphatic: Denies easy bruising Allergic/Immunologic Allergic/Immunologic: Denies urticaria, Denies throat swelling and Denies wheezing Exam Initial Vital Signs Initial Vital Signs: Vital Signs Temperature 98.9 F 04/20/19 15:16 Pulse Rate 109 H 04/20/19 15:16 Respiratory Rate 16 04/20/19 15:16 Blood Pressure 154/89 H 04/20/19 15:16 Pulse Oximetry 96 04/20/19 15:16 Const General: cooperative and well developed Nutritional Appearance: well nourished Orientation: alert, awake, oriented x3 and not confused [facility] Head: normocephalic and atraumatic Ears: external ears normal and TM's normal bilaterally Nose: external nose normal and No nasal discharge Face and sinus: sinuses nontender, face symmetric, no sinus tenderness and No dry mucous membranes Mouth: oral mucosae normal and moist mucous membranes Teeth and gingiva: dentition normal Throat: tonsils normal and uvula midline Eyes General: appearance normal, both eyes and all related structures Eyelids: eyelids normal Conjunctivae: conjunctivae normal Sclera: sclerae normal Pupils: PERRL EOM: EOM intact bilaterally Neck Neck: normal visual inspection, trachea midline, No lymphadenopathy, No midline deformity and No JVD Lymphatic: No lymphedema Chest Chest: normal inspection of the chest Resp Effort & Inspection: normal respiratory effort, able to speak in complete sentences, no respiratory distress and no use of accessory muscles Auscultation: clear to auscultation bilaterally, no rales, no rhonchi and no wheezes Cardio Rate: regular rate Rhythm: regular rhythm Heart Sounds: no click, no gallops, no murmurs and no rubs Pulses: normal peripheral pulses GI Inspection: non-distended Palpation: soft, no hepatosplenomegaly, No guarding, No pulsatile mass and tender (Diffuse, mild) Back/Spine/Pelvis Back: No CVA tenderness Cervical Spine: cervical ROM normal and No pain with cervical ROM Thoracic/Lumbar Spine: thoracic and lumbar spine normal to inspection Skin General: no rashes or lesions noted, No jaundice and No petechiae Neuro General: alert, awake (Grossly oriented; answers questions appropriately) and no focal motor deficits Speech: speech normal Extrem General: full ROM, no clubbing, cyanosis or edema, no pedal edema and no calf tenderness Psych Appearance: well kempt Mental Status: mental status grossly normal Attitude: cooperative Thought Content: normal and suicidality Judgment: judgment good Course Course Course Narrative: Patient was treated in the emergency department symptomatically. Her symptoms were consistent with prior exacerbations of her underlying painful conditions. Patient was found to be feeling better after symptomatic treatment, which included Ativan. There was some confusion between the patient and the caregiver as to whether not the patient had actually been taking her Dilantin home. The patient had recently had the prescription refilled, approximately week before presenting to the emergency department, but insisted she had not been taking the medication for weeks, and felt as though she ?might have a seizure.? I did discuss with the patient that I have already treated her with Ativan in the emergency department, so the likelihood of seizure is very low. However, I have advised the patient that she should get back on her Dilantin, starting tomorrow morning, and that her caregiver should verify with the patient is and is not taking, as far as medications. We have discussed home management of symptoms, as well as the usual indications for return. Orders Ordered: Discontinued Medications Hydromorphone HCl (Dilaudid) 2 mg IV NOW ONE Stop: 04/20/19 16:39 Last Admin: 04/20/19 17:07 Dose: 2 mg Documented by: LREED Sodium Chloride (Normal Saline 0.9%) 1,000 mls @ 1,000 mls/hr IV BOLUS ONE Stop: 04/20/19 17:37 Last Infusion: 04/20/19 18:57 Dose: 0 mls/hr Documented by: Admin: 04/20/19 17:31 Dose: 1,000 mls/hr Documented by: LREED Ketorolac Tromethamine (Toradol) 30 mg IV NOW ONE Stop: 04/20/19 16:39 Last Admin: 04/20/19 17:07 Dose: 30 mg Documented by: ROBERT Lorazepam (Ativan) 1 mg IV NOW ONE Stop: 04/20/19 16:39 Last Admin: 04/20/19 17:06 Dose: 1 mg Documented by: ROBERT Ondansetron HCl (Zofran) 4 mg IV NOW ONE Stop: 04/20/19 16:39 Last Admin: 04/20/19 17:07 Dose: 4 mg Documented by: ROBERT Vital Signs Vital signs: Vital Signs - 8 hr 04/20/19 15:16 Temperature 98.9 F Pulse Rate 109 H Respiratory Rate 16 Blood Pressure 154/89 H Pulse Oximetry 96 MDM - Nausea/Vomiting/Diarrhea Medical Records Attestation: I reviewed the patient's medical records. Discharge Plan Departure Patient Disposition: Home Clinical Impression: Chronic pain syndrome, Multiple sclerosis Bilious vomiting Qualifiers: Nausea presence: with nausea Qualified Code(s): R11.14 - Bilious vomiting Discharge Date/Time: 04/20/19 18:59 Instructions: Fibromyalgia, DI for Headache Activity Restrictions/Additional Instructions: Please get back on her medications, as directed. You have been treated with IV medication to prevent seizures tonight. However, if you do not have your Dilantin, you will need to go get the prescription we have given you filled at the pharmacy. Please take only one Dilantin prescription or the other, but not both. Prescriptions: No Action cholecalciferol (vitamin D3) 50,000 unit capsule 50,000 unit PO QWEEK RF: 0 lactulose 10 gram packet 20 gram PO BID RF: 0 mineral oil enema See Rx Instructions MA .COMPLEX RF: 0 promethazine 25 mg tablet 25 mg PO Q6H PRN (Reason: Nausea) RF: 0 calcium carbonate [Tums] 500 MG tablet,chewable 500 mg PO BIDP PRN (Reason: Heartburn) Qty: 0 RF: 0 polyethylene glycol 3350 [Miralax] 17 GM powder in packet 17 gm PO QDAY Qty: 1 RF: 3 ranitidine HCl 150 mg capsule 150 mg PO BID Qty: 60 RF: 0 albuterol sulfate [Ventolin HFA] 90 mcg/actuation HFA aerosol inhaler 2 puff INHALATION QIDP PRN (Reason: shortness of breath or wheezing) Qty: 2 RF: 3 docusate sodium 250 mg capsule 250 mg PO BID Qty: 60 RF: 3 ferrous sulfate [FeroSul] 325 mg (65 mg iron) tablet 325 mg PO DAILY Qty: 30 RF: 5 meclizine 25 mg tablet,chewable 25 mg PO DAILY PRN (Reason: dizziness) Qty: 30 RF: 2 trazodone 100 mg tablet 200 mg PO BEDTIME PRN (Reason: insomnia) Qty: 60 RF: 5 omeprazole 40 mg capsule,delayed release(DR/EC) 40 mg PO DAILY Qty: 30 RF: 2 gabapentin 300 mg capsule 300 mg PO Q12H Qty: 180 RF: 0 Ajovy 225 mg/1.5 mL syringe 225 mg SUBCUT QMONTH Qty: 1.5 RF: 11 zonisamide 25 mg capsule 25 mg PO DAILY Qty: 120 RF: 2 Zomig 5 mg spray,non-aerosol 1 spray NASAL ONCE Qty: 6 RF: 1 Referrals: Sonya Short DO [Primary Care Provider] -
[2019-04-20] MEDS: LORazepam 2 MG/ML INJ 1 MG IV (17:06)
[2019-04-20] MEDS: ONDANSETRON 4 MG/2 ML INJ IV (17:07)
[2019-04-20] MEDS: HYDROMORPHONE 1 MG INJ 2 MG IV (17:07)
[2019-04-20] MEDS: KETOROLAC 60 MG/2 ML VIAL 30 MG IV (17:07)
[2019-04-20] MEDS: SODIUM CHLORIDE 0.9% 1,000 ML 1000 ML IV (17:31)
[2019-04-20 18:57] VITALS: BP 137/91; PULSE 121
== END 2019-04-20 18:59 | disposition home or self-care (01) ==
PROVIDERS: Emergency Provider Emergency Medicine; PCP Family Medicine
DX: G89.4 Chronic pain syndrome (principal); G35 Multiple sclerosis; R11.14 Bilious vomiting
CPT/HCPCS: 96361; 96374; 96375; 99283; 99284; J1170; J1885; J2060; J2405

== ENCOUNTER 2019-04-22 20:45 | Emergency (ER) | payer OTHER, MEDICAID, SELFPAY ==
[2019-04-22 20:55] VITALS: BP 108/70; PULSE 128; RESP 18; TEMP 36.5; O2SAT 100
--- NOTE | 2019-04-22 21:18 | PC.NURSE ---
She stated she has history of migraines and this is typical headache for her.
--- NOTE | 2019-04-22 21:18 | PC.NURSE ---
Patient keeps asking for coffee, ice water. I was able to keep providing the patient with warm blankets, but she could not have any other fluids or extra ice chips.
[2019-04-22 23:00] VITALS: BP 103/73; PULSE 123; RESP 18; O2SAT 96
[2019-04-22 23:30] VITALS: BP 95/60; PULSE 107; RESP 18
[2019-04-23] MEDS: SODIUM CHLORIDE 0.9% 1,000 ML 1000 ML IV (00:30)
[2019-04-23 00:31] VITALS: BP 109/69; PULSE 103; RESP 12; O2SAT 100
--- NOTE | 2019-04-23 00:33 | DI.CT.S_ITS ---
PROCEDURE: CT HEAD/BRAIN WO CON INDICATIONS: headache, twitching, seizure history TECHNIQUE: Noncontrast 4.5 mm thick angled axial sections acquired from the foramen magnum to the vertex, with coronal and sagittal reformats. For radiation dose reduction, the following was used: automated exposure control, adjustment of mA and/or kV according to patient size. COMPARISON: [facility], MR, BRAIN W&WO CONTRAST, 10/22/2017, 14:31. [facility], CT, CT HEAD/BRAIN WO CON, 04/05/2019, 19:07. [facility], CT, CT HEAD/BRAIN WO CON, 04/08/2019, 10:03. FINDINGS: Image quality: Excellent. CSF spaces: Basal cisterns are patent. No extra-axial fluid collections. Ventricles are normal in size and shape. Brain: No midline shift. No intracranial masses or hemorrhage. There is brain parenchymal volume loss. Moreno-white matter interface is normal. Skull and face: Calvarium and visualized facial bones are intact, without suspicious lesions. Sinuses: Visualized sinuses and mastoids are clear. IMPRESSION: No acute intracranial process is seen. Stable from prior. Brain parenchymal volume loss is seen, which is more prominent than would be expected for a patient of this age. Note: No significant discrepancy from the preliminary report. Dictated by: Jaspreet Laughlin M.D. on 04/23/2019 at 11:32 Approved by: Jaspreet Laughlin M.D. on 04/23/2019 at 11:33
--- NOTE | 2019-04-23 00:34 | ED_ITS ---
HPI - Headache General Chief Complaint: Headache Stated Complaint: PAIN MIGRAINE STOMACH PAIN EVERYWHERE Time Seen by Provider: 04/23/19 00:32 Source: patient Mode of arrival: Wheelchair Limitations: no limitations History of Present Illness HPI Narrative: This is a 54-year-old female who comes in with complaint of migraine. Patient states that she gets migraines intermittently. This 1 seems a little bit worse. She also states that she has intermittent seizures. She told nursing staff she thought she would have 1 earlier she was not brought back. She did appear to have a seizure here in the department on the right side with twitching, lasted about a minute to 2 minutes. Patient seem to be postictal for several minutes and does not recall the event. Her heart rate was elevated initially on arrival. Patient states that she does have a little bit of vision change on the right, she states that her seizure type symptoms are always on the right. She does take seizure medication but states she does not remember where she put and she has not been taking it for period of time. She is not sure if it has been couple weeks or longer. Patient denies any chest pain or shortness of breath. She has felt nauseated. She denies any issues that are new with bowel movements or urination. Denies any other new tingling or numbness. Denies any fevers or chills. Related Data Home Medications Medication Instructions Recorded Confirmed calcium carbonate [Tums] 500 mg PO BIDP PRN #0 05/27/17 04/20/19 cholecalciferol (vitamin D3) 50,000 unit PO QWEEK 04/22/18 04/20/19 50,000 unit capsule lactulose 10 gram oral packet 20 gram PO BID 04/22/18 04/20/19 mineral oil See Rx Instructions MT .COMPLEX 04/22/18 04/20/19 promethazine 25 mg tablet 25 mg PO Q6H PRN tab 04/22/18 04/20/19 Previous Rx's Medication Instructions Recorded polyethylene glycol 3350 [Miralax] 17 gm PO QDAY #1 bot 07/30/17 ranitidine HCl 150 mg capsule 150 mg PO BID #60 cap 11/27/17 albuterol sulfate 90 mcg/actuation 2 puff INHALATION QIDP PRN #2 ea 11/08/18 aerosol inhaler docusate sodium 250 mg capsule 250 mg PO BID #60 cap 11/08/18 ferrous sulfate 325 mg (65 mg 325 mg PO DAILY #30 tab 11/08/18 iron) tablet meclizine 25 mg chewable tablet 25 mg PO DAILY PRN #30 tab 11/08/18 trazodone 100 mg tablet 200 mg PO BEDTIME PRN #60 tab 11/08/18 omeprazole 40 mg capsule,delayed 40 mg PO DAILY #30 cap 12/13/18 release fremanezumab-vfrm 225 mg/1.5 mL 225 mg SUBCUT QMONTH #1.5 ml 01/21/19 subcutaneous syringe zonisamide 25 mg capsule 25 mg PO DAILY #120 cap 01/21/19 gabapentin 300 mg capsule 300 mg PO Q12H #180 cap 03/04/19 Allergies Allergy/AdvReac Type Severity Reaction Status Date / Time droperidol [DROPERIDOL] Allergy Severe throat Verified 03/04/19 13:33 swelling sumatriptan [From IMITREX] Allergy Severe throat Verified 03/04/19 13:33 swelling prochlorperazine Allergy Unknown Verified 03/04/19 13:33 [From COMPAZINE] Iodine and Iodide Containing Allergy Verified 03/04/19 13:33 Produc Review of Systems Review of Systems ROS Unobtainable: All systems reviewed & are unremarkable except as noted in HPI and below Patient History Medical/Surgical History Medical History ADHD (attention deficit hyperactivity disorder) (Chronic Unknown) Anxiety (Chronic Unknown) Chronic pain (Chronic ~04/2017) Depression (Chronic Unknown) Fibromyalgia (Chronic ~04/2017) Generalized headaches (Chronic Unknown) Hiatal hernia with GERD and esophagitis (Acute ~08/2017) History of alcoholism (Resolved Unknown) Migraines (Chronic Unknown) Multiple sclerosis (Chronic Unknown) Personality disorder (Chronic Unknown) Pneumonia (Resolved 04/2017) Seizure disorder (Chronic Unknown) TIA (transient ischemic attack) (Resolved Unknown) Surgical History History of esophagogastroduodenoscopy (EGD) (Resolved 07/2017) Hx of appendectomy (Resolved) Hx of section (Resolved) Family History Father Mental health problem Social History Smoking Status: Current some day smoker alcohol intake: current substance use type: does not use and marijuana Family/Social History Social History Smoking Status: Current some day smoker alcohol intake: current substance use type: does not use and marijuana alcohol intake frequency: 0-2 drinks per day Substance Use Type: does not use Exam Narrative Exam Narrative: GEN: well nourished, well appearing female, alert and oriented x 3, patient appears to be in no acute distress. HEENT: Atraumatic, pupils are equal round reactive to light, extraocular movements are intact, nares are clear, TMs are clear with no fluid, there is no conjunctival pallor. Throat is clear without any exudates, erythema, tonsillar enlargement or uvular deviation, no meningeal signs. HEART: Regular rate and rhythm without murmur, clicks, rubs. Pulses are equal in upper and lower extremities LUNGS:Lungs clear to auscultation, no wheezes, rales, crackles, chest moves symmetrically ABD:bowel sounds normal, soft, non-tender, no guarding, rebound, rigidity, no masses noted, no hepatosplenomegaly MSCL: Non-tender, no muscle atrophy, full range of motion, normal gait NEURO:CN 2-12 intact, sensation normal, reflexes 2/4 upper and lower extremities. GCS of 15 SKIN: No rash or skin change. Initial Vital Signs Initial Vital Signs: Vital Signs Temperature 97.7 F 04/22/19 20:55 Pulse Rate 128 H 04/22/19 20:55 Respiratory Rate 18 04/22/19 20:55 Blood Pressure 108/70 04/22/19 20:55 Pulse Oximetry 100 04/22/19 20:55 Scores GCS Vanessa coma scale eye opening: Spontaneous Vanessa coma scale verbal response: Orientated Vanessa coma scale motor response: Obey commands Vanessa coma scale total score: 15 Course Orders Ordered: ED Orders 04/23/19 00:01 Complete Blood Count AUTO DIFF Stat Comprehensive Metabolic Panel Stat Ethanol (ETOH) Stat Magnesium Stat Prolactin Stat 04/23/19 00:33 CT head/brain wo con Stat EKG-12 Lead Stat Discontinued Medications Dexamethasone (Decadron) 10 mg IV NOW ONE Stop: 04/23/19 06:47 Last Admin: 04/23/19 07:12 Dose: 10 mg Documented by: ELOY Hydromorphone HCl (Dilaudid) 0.5 mg IV NOW ONE Stop: 04/23/19 00:48 Last Admin: 04/23/19 00:40 Dose: 0.5 mg Documented by: ANNELL Hydromorphone HCl (Dilaudid) 1 mg IV NOW ONE Stop: 04/23/19 02:04 Last Admin: 04/23/19 02:05 Dose: 1 mg Documented by: ELOY Sodium Chloride (Normal Saline 0.9%) 1,000 mls @ 1,000 mls/hr IV BOLUS ONE Stop: 04/23/19 01:31 Last Infusion: 04/23/19 01:32 Dose: 1,000 mls/hr Documented by: Admin: 04/23/19 00:30 Dose: 1,000 mls/hr Documented by: ELOY Ketorolac Tromethamine (Toradol) 30 mg IV NOW ONE Stop: 04/23/19 03:46 Last Admin: 04/23/19 03:51 Dose: 30 mg Documented by: ELOY Lorazepam (Ativan) 1 mg 0.02 mg/kg (1 mg) IV NOW ONE Stop: 04/23/19 03:46 Last Admin: 04/23/19 03:52 Dose: 1 mg Documented by: ELOY Vital Signs Vital signs: Vital Signs - 8 hr 04/22/19 23:30 04/23/19 00:31 04/23/19 02:05 Pulse Rate 107 H 103 H 107 H Respiratory Rate 18 12 9 L Blood Pressure [Right Wrist] 95/60 109/69 98/58 L Pulse Oximetry 100 99 04/23/19 02:30 Pulse Rate 110 H Respiratory Rate 18 Blood Pressure [Right Wrist] 106/67 Pulse Oximetry 100 MDM - Headache Lab Data Attestation: I reviewed the patient's lab results. Result diagrams: 04/23/19 00:01 04/23/19 00:01 Labs: Lab Results 04/23/19 04/23/19 04/23/19 Range/Units 00:01 00:01 00:01 WBC 6.7 (4.5-11.0) X10^3/uL RBC 3.96 L (4.0-5.2) X10^6/uL Hgb 10.1 L (12.0-16.0) g/dL Hct 31.4 L (36-46) % MCV 79.4 L (80-100) fL MCH 25.5 L (26-34) PG MCHC 32.1 (30-36) % RDW 20.4 H (11.6-14.8) % Plt Count 474 H (150-400) X10^3/uL Neut % (Auto) 64.7 (50-75) % Lymph % (Auto) 27.7 (25-40) % [place] % (Auto) 5.5 (3-14) % Eos % (Auto) 1.4 L (2-4) % Baso % (Auto) 0.7 (0-2) % Neut # (Auto) 4300 (0107-5387) /uL Lymph # (Auto) 1900 (8218-0375) /uL [place] # (Auto) 400 (0-900) /uL Eos # (Auto) 100 (0-450) /uL Baso # (Auto) 0 (0-100) /uL RBC Morphology See below Hypochromasia 1+ H Anisocytosis 3+ H Sodium 135 L (137-145) mmol/L Potassium 3.9 (3.4-5.1) mmol/L Chloride 96 L (98-107) mmol/L Carbon Dioxide 28 (22-32) mmol/L BUN 25 H (7-17) mg/dL Creatinine 1.00 (0.52-1.04) mg/dL Estimated GFR 57.4 L (>60) mL/min BUN/Creatinine Ratio 25.0 H (6-22) Glucose 85 (70-100) mg/dL Calcium 9.0 (8.4-10.2) mg/dL Magnesium 2.1 (1.6-2.3) mg/dL Total Bilirubin 0.5 (0.2-1.3) mg/dL AST 31 (14-36) IU/L ALT 13 (9-52) IU/L Alkaline Phosphatase 102 (38-126) U/L Total Protein 7.7 (6.3-8.2) g/dL Albumin 3.9 (3.5-5.0) g/dL Globulin 3.8 (1.7-4.1) g/dL Albumin/Globulin Ratio 1.0 (1.0-2.8) Prolactin 13.6 (3.0-18.6) ng/mL Ethyl Alcohol < 10 ( - 10) mg/dL Imaging Data CT scan - head: Radiologist's impression: Chronic involutional volume loss with no acute findings. MDM Narrative Medical decision making narrative: Patient depart for complaint of migraine. Patient appeared to possibly have 1 seizure, she had some twitching of her right eye, held her right extremity sort of straight without much movement. She did seem to have a postictal period for few minutes. She only had 1 episode that was witnessed here in the department. Patient does have known seizure disorder, she states she is not taking her medications. Her labs do not show any lab abnormalities that would clearly cause her issues today. Patient received 2 doses of Dilaudid, Toradol without much improvement. She states that she is feeling more confused and so we discussed were not going to do any more narcotic medication patient was offered Tylenol which she refused politely. She was also given a dose of Decadron. Patient continues to have headache, she has not had any further seizures. We did attempt to contact her neurologist but were unsuccessful, patient did not wish to stay in the department anymore and would like to return home. She is up and ambulating without issue. She has not had any neurologic changes during her stay. Head CT shows no acute change. She has told me she has her medications at home but she has to find them. We did attempt to contact family or friend to come get her but the phone numbers to not work so she was sent home via cab. Discharge Plan Departure Patient Disposition: Home Clinical Impression: Migraine, Seizure disorder Instructions: DI for Seizure Disorder -- Adult Activity Restrictions/Additional Instructions: Follow-up with your neurologist, Dr. Gilbert. Call Thursday morning for an appointment. Start taking your seizure medication and take it daily as prescribed. I would recommend having someone is issue with your medications if you have difficulty keeping track of them. Return for fevers greater than 100.4 F, new vision changes, new chest pain, new shortness of breath, persistent vomiting, new neurologic changes, if you are having seizures and do not return to your baseline, or other new concerning changes. Prescriptions: No Action cholecalciferol (vitamin D3) 50,000 unit capsule 50,000 unit PO QWEEK RF: 0 lactulose 10 gram packet 20 gram PO BID RF: 0 mineral oil enema See Rx Instructions MT .COMPLEX RF: 0 promethazine 25 mg tablet 25 mg PO Q6H PRN (Reason: Nausea) RF: 0 calcium carbonate [Tums] 500 MG tablet,chewable 500 mg PO BIDP PRN (Reason: Heartburn) Qty: 0 RF: 0 polyethylene glycol 3350 [Miralax] 17 GM powder in packet 17 gm PO QDAY Qty: 1 RF: 3 ranitidine HCl 150 mg capsule 150 mg PO BID Qty: 60 RF: 0 albuterol sulfate [Ventolin HFA] 90 mcg/actuation HFA aerosol inhaler 2 puff INHALATION QIDP PRN (Reason: shortness of breath or wheezing) Qty: 2 RF: 3 docusate sodium 250 mg capsule 250 mg PO BID Qty: 60 RF: 3 ferrous sulfate [FeroSul] 325 mg (65 mg iron) tablet 325 mg PO DAILY Qty: 30 RF: 5 meclizine 25 mg tablet,chewable 25 mg PO DAILY PRN (Reason: dizziness) Qty: 30 RF: 2 trazodone 100 mg tablet 200 mg PO BEDTIME PRN (Reason: insomnia) Qty: 60 RF: 5 omeprazole 40 mg capsule,delayed release(DR/EC) 40 mg PO DAILY Qty: 30 RF: 2 gabapentin 300 mg capsule 300 mg PO Q12H Qty: 180 RF: 0 Ajovy 225 mg/1.5 mL syringe 225 mg SUBCUT QMONTH Qty: 1.5 RF: 11 zonisamide 25 mg capsule 25 mg PO DAILY Qty: 120 RF: 2 Referrals: Sonya Short DO [Primary Care Provider] - Antonio Gilbert MD [Non-Staff] -
[2019-04-23] MEDS: HYDROMORPHONE 0.5 MG INJ IV (00:40)
[2019-04-23 00:48] LABS: Alanine Aminotransferase 13 IU/L (9-52); Albumin 3.9 g/dL (3.5-5.0); Alkaline Phosphatase 102 U/L (38-126); Aspartate Aminotransferase 31 IU/L (14-36); Bilirubin Total 0.5 mg/dL (0.2-1.3); Blood Urea Nitrogen 25 mg/dL (7-17); Carbon Dioxide 28 mmol/L (22-32); Chloride 96 mmol/L (98-107); Estimated Glomerular Filt Rate 57.4 mL/min (>60); Ethanol (ETOH) < 10 mg/dL; Globulin 3.8 g/dL (1.7-4.1); Glucose 85 mg/dL (70-100); HEMOLYSIS < 15 (0-50); Potassium 3.9 mmol/L (3.4-5.1); Sodium 135 mmol/L (137-145); Total Protein 7.7 g/dL (6.3-8.2)
[2019-04-23 00:51] LABS: Add Manual Diff / Slide Review NO; Basophils Absolute Auto 0 /uL (0-100); Basophils Percent Auto 0.7 % (0-2); Eosinophils Absolute Auto 100 /uL (0-450); Eosinophils Percent Auto 1.4 % (2-4); Hematocrit 31.4 % (36-46); Hemoglobin 10.1 g/dL (12.0-16.0); Lymphocytes Absolute Auto 1900 /uL (1100-4500); Lymphocytes Percent Auto 27.7 % (25-40); Magnesium 2.1 mg/dL (1.6-2.3); Mean Corpuscular HGB Conc 32.1 % (30-36); Mean Corpuscular Hemoglobin 25.5 PG (26-34); Mean Corpuscular Volume 79.4 fL (80-100); Monocytes Absolute Auto 400 /uL (0-900); Monocytes Percent Auto 5.5 % (3-14); Neutrophils Absolute Auto 4300 /uL (1500-7000); Neutrophils Percent Auto 64.7 % (50-75); Platelet Count 474 X10^3/uL (150-400); Red Blood Cell Count 3.96 X10^6/uL (4.0-5.2); Red Cell Distribution Width 20.4 % (11.6-14.8); White Blood Cell Count 6.7 X10^3/uL (4.5-11.0)
--- NOTE | 2019-04-23 00:57 | PC.NURSE ---
During IV start patient became unresponsive to verbal, right eye had a slight blink, pt had a slight assist in holding arm up for IV placement. Pt responsive post line placement. Notified Dr Foss.
[2019-04-23 01:14] LABS: Prolactin 13.6 ng/mL (3.0-18.6)
[2019-04-23 02:05] VITALS: BP 98/58; PULSE 107; RESP 9; O2SAT 99
[2019-04-23] MEDS: HYDROMORPHONE 0.5 MG INJ 1 MG IV (02:05)
[2019-04-23 02:30] VITALS: BP 106/67; PULSE 110; RESP 18; O2SAT 100
[2019-04-23 02:36] LABS: Anisocytosis 3+; Hypochromasia 1+
--- NOTE | 2019-04-23 02:40 | PC.NURSE ---
PT agitated in room wanting more pain meds and Dr. Pt informed Dr is with another pt and pt remains irritated full charge bookkeeper spoke with pt further. Pt given sandmandoich and joe. Dr. Foss updated.
[2019-04-23] MEDS: KETOROLAC 60 MG/2 ML VIAL 30 MG IV (03:51)
[2019-04-23] MEDS: LORazepam 2 MG/ML INJ 1 MG IV (03:52)
--- NOTE | 2019-04-23 06:04 | PC.NURSE ---
0130 pt requesting more pain medication Dr. reid.
--- NOTE | 2019-04-23 06:05 | PC.NURSE ---
0100 pt requesting ice chips, given per Dr valenzuela.
--- NOTE | 2019-04-23 06:16 | PC.NURSE ---
Mrs. Shipman notified admitting staff that she thought she might have a seizure,she was in ED waiting room at that time due to no bed availability in the ED. I went out and spoke with her and noted no seizure activity.She was brought back to the ED to the next available bed,she remained alert and her only c/o was a head ache.
[2019-04-23] MEDS: DEXAMETHASONE 10 MG/ML VIAL IV (07:12)
[2019-04-23 08:06] VITALS: BP 106/72; PULSE 77; RESP 16; O2SAT 97
== END 2019-04-23 08:07 | disposition home or self-care (01) ==
PROVIDERS: Emergency Provider Emergency Medicine; PCP Family Medicine
DX: G43.909 Migraine, unspecified, not intractable, without status migrainosus (principal); G40.909 Epilepsy, unspecified, not intractable, without status epilepticus
CPT/HCPCS: 36415; 70450; 80053; 80320; 83735; 84146; 85025; 93005; 96361; 96374; 96375; 96376; 99284; 99285; J1100; J1170; J1885; J2060

== ENCOUNTER 2019-05-05 17:37 | Emergency (ER) | payer OTHER, MEDICAID, SELFPAY ==
[2019-05-05 17:40] VITALS: BP 132/61; PULSE 102; RESP 18; TEMP 36.6; O2SAT 100; BMI 19.9
--- NOTE | 2019-05-05 18:17 | DI.CT.S_ITS ---
PROCEDURE: CT HEAD/BRAIN W CON INDICATIONS: seizure headache odd behavior TECHNIQUE: 4.5 mm thick angled axial sections acquired from the foramen magnum to the vertex after the administration of intravenous contrast, with coronal and sagittal reformats. For radiation dose reduction, the following was used: automated exposure control, adjustment of mA and/or kV according to patient size. COMPARISON: [facility], CT, CT HEAD/BRAIN WO CON, 04/23/2019, 0:35. FINDINGS: Image quality: Excellent. CSF Spaces: Basal cisterns are patent. No extra-axial fluid collections. Ventricles are normal in size and shape. Brain: No midline shift. No intracranial bleeds or masses. No abnormal intracranial enhancement. Moreno-white interface appears normal. Stable appearance of diffuse cortical volume loss slightly more than expected for age. Skull and face: Calvarium and visualized facial bones appear intact, without suspicious lesions. Sinuses: Visualized sinuses and mastoids are clear. IMPRESSION: Stable CT evaluation of the head without acute intracranial abnormalities. No mass or mass effect. Dictated by: Ottoniel Rollins M.D. on 05/05/2019 at 19:06 Approved by: Ottoniel Rollins M.D. on 05/05/2019 at 19:07
--- NOTE | 2019-05-05 18:22 | PC.NURSE ---
right wrist iv start, with blood, right after juan, pt c/o burning bilateral eyes, ns flushed offered, pt refused and agitated, to verify pts , pt refused. pt got very angry.
--- NOTE | 2019-05-05 18:28 | ED.HA ---
HPI - Headache General Chief Complaint: Headache Stated Complaint: mirgraine Time Seen by Provider: 05/05/19 18:05 Source: patient and old records reviewed Mode of arrival: Wheelchair Limitations: no limitations History of Present Illness HPI Narrative: Patient is a 54-year-old female who presents with headache. She has history of migraine headaches and seizures. She states that she saw her doctor yesterday and try to get her medications refilled at [facility] however [facility] was out of her medications so she has not taken any. she says her headache started yesterday she has been nauseous she has vomited at times. My initial evaluation her right eye was blinking she would lift her head up she was not responsive she would not follow commands. This has been documented in previous ED visits. She does not appear to be post filled she then started following commands and answering questions. She is wanting something more than Toradol for her headache MD Complaint: headache Onset (ago): day(s) Related Data Home Medications Medication Instructions Recorded Confirmed calcium carbonate [Tums] 500 mg PO BIDP PRN #0 05/27/17 04/20/19 cholecalciferol (vitamin D3) 50,000 unit PO QWEEK 04/22/18 04/20/19 50,000 unit capsule lactulose 10 gram oral packet 20 gram PO BID 04/22/18 04/20/19 mineral oil See Rx Instructions [place] .COMPLEX 04/22/18 04/20/19 promethazine 25 mg tablet 25 mg PO Q6H PRN tab 04/22/18 04/20/19 Previous Rx's Medication Instructions Recorded polyethylene glycol 3350 [Miralax] 17 gm PO QDAY #1 bot 07/30/17 ranitidine HCl 150 mg capsule 150 mg PO BID #60 cap 11/27/17 albuterol sulfate 90 mcg/actuation 2 puff INHALATION QIDP PRN #2 ea 11/08/18 aerosol inhaler docusate sodium 250 mg capsule 250 mg PO BID #60 cap 11/08/18 ferrous sulfate 325 mg (65 mg 325 mg PO DAILY #30 tab 11/08/18 iron) tablet meclizine 25 mg chewable tablet 25 mg PO DAILY PRN #30 tab 11/08/18 trazodone 100 mg tablet 200 mg PO BEDTIME PRN #60 tab 11/08/18 omeprazole 40 mg capsule,delayed 40 mg PO DAILY #30 cap 12/13/18 release fremanezumab-vfrm 225 mg/1.5 mL 225 mg SUBCUT QMONTH #1.5 ml 01/21/19 subcutaneous syringe zonisamide 25 mg capsule 25 mg PO DAILY #120 cap 01/21/19 gabapentin 300 mg capsule 300 mg PO Q12H #180 cap 03/04/19 zolmitriptan 5 mg nasal spray 1 spray NASAL ONCE #6 each 04/25/19 Allergies Allergy/AdvReac Type Severity Reaction Status Date / Time droperidol [DROPERIDOL] Allergy Severe throat Verified 05/05/19 17:40 swelling sumatriptan [From IMITREX] Allergy Severe throat Verified 05/05/19 17:40 swelling prochlorperazine Allergy Unknown Verified 05/05/19 17:40 [From COMPAZINE] Iodine and Iodide Containing Allergy Verified 05/05/19 17:40 Produc Review of Systems Review of Systems Narrative: GENERAL: Denies chills, fatigue, malaise, fever, sweats, travel HEENT: Denies sinus pain, ear pain, sore throat, difficulty swallowing, neck pain RESPIRATORY: Denies dyspnea, cough, wheezing, hemoptysis, sputum. CARDIOVASCULAR: Denies chest pain, palpitations, orthopnea, edema GASTROINTESTINAL: Denies nausea, vomiting, abdominal pain, diarrhea, constipation, melena. : Denies dysuria, frequency, incontinence, hematuria, urinary retention, flank pain. MUSCULOSKELETAL: Denies weakness, joint pain, or bony pain SKIN: No rash, no erythema, no pruritus NEUROLOGIC: See HPI PSYCHIATRIC: No concerning psychosocial issues. 12 point review of systems is negative except for those stated above and HPI Patient History Medical History ADHD (attention deficit hyperactivity disorder) (Chronic Unknown) Anxiety (Chronic Unknown) Chronic pain (Chronic ~04/2017) Depression (Chronic Unknown) Fibromyalgia (Chronic ~04/2017) Generalized headaches (Chronic Unknown) Hiatal hernia with GERD and esophagitis (Acute ~08/2017) History of alcoholism (Resolved Unknown) Migraines (Chronic Unknown) Multiple sclerosis (Chronic Unknown) Personality disorder (Chronic Unknown) Pneumonia (Resolved 04/2017) Seizure disorder (Chronic Unknown) TIA (transient ischemic attack) (Resolved Unknown) Surgical History History of esophagogastroduodenoscopy (EGD) (Resolved 07/2017) Hx of appendectomy (Resolved) Hx of section (Resolved) Family History Father Mental health problem Social History Smoking Status: Current some day smoker alcohol intake: current substance use type: does not use and marijuana alcohol intake frequency: 0-2 drinks per day Substance Use Type: does not use Exam Initial Vital Signs Initial Vital Signs: Vital Signs Temperature 97.8 F 05/05/19 17:40 Pulse Rate 102 H 05/05/19 17:40 Respiratory Rate 18 05/05/19 17:40 Blood Pressure 132/61 05/05/19 17:40 Pulse Oximetry 100 05/05/19 17:40 GENERAL: Well-appearing, well-nourished and in no acute distress. HEENT: Head atraumatic,EOMI, pupils reactive, face symmetric, moist mucous membranes CARDIOVASCULAR: Regular rate and rhythm without murmurs, rubs or gallops. RESPIRATORY: Breath sounds equal bilaterally, no wheezes rales or rhonchi. ABDOMEN: Soft, nontender. Normoactive bowel sounds all 4 quadrants. No guarding or rebound. EXTREMITIES: Normal range of motion, no clubbing or edema. Neurovascularly intact NEUROLOGICAL: Alert and oriented x4.Normal gait and speech. Cranial nerves II through XII grossly intact. SKIN: Warm, dry, no laceration, no petechiae, no rashes or lesions. Course Orders Ordered: ED Orders 05/05/19 18:17 CT head/brain w con Stat 05/05/19 18:18 Acetaminophen Stat Complete Blood Count AUTO DIFF Stat Comprehensive Metabolic Panel Stat Ethanol (ETOH) Stat Prolactin Stat Salicylate Stat Discontinued Medications Sodium Chloride (Normal Saline 0.9%) 1,000 mls @ 1,000 mls/hr IV BOLUS ONE Stop: 05/05/19 19:14 Last Infusion: 05/05/19 19:25 Dose: 0 mls/hr Documented by: Admin: 05/05/19 18:30 Dose: 1,000 mls/hr Documented by: MEISENChase Ketorolac Tromethamine (Toradol) 30 mg IV NOW ONE Stop: 05/05/19 18:16 Last Admin: 05/05/19 18:30 Dose: 30 mg Documented by: CYNDIESENChase Ondansetron HCl (Zofran) 4 mg IV NOW ONE Stop: 05/05/19 18:28 Last Admin: 05/05/19 18:31 Dose: 4 mg Documented by: MEISENChase Potassium Chloride (Klor-Con M20) 40 meq PO NOW ONE Stop: 05/05/19 19:10 Last Admin: 05/05/19 19:22 Dose: 40 meq Documented by: DANIEL Vital Signs Vital signs: Vital Signs - 8 hr 05/05/19 19:14 Pulse Rate 100 H Respiratory Rate 18 Blood Pressure [Left Arm] 106/54 L Pulse Oximetry 100 MDM - Headache Lab Data Attestation: I reviewed the patient's lab results. Result diagrams: 05/05/19 18:18 05/05/19 18:18 Labs: Lab Results 05/05/19 05/05/19 Range/Units 18:18 18:18 WBC 6.7 (4.5-11.0) X10^3/uL RBC 3.03 L (4.0-5.2) X10^6/uL Hgb 7.9 L (12.0-16.0) g/dL Hct 24.9 L (36-46) % MCV 82.1 (80-100) fL MCH 26.1 (26-34) PG MCHC 31.7 (30-36) % RDW 22.0 H (11.6-14.8) % Plt Count 465 H (150-400) X10^3/uL Neut % (Auto) 70.2 (50-75) % Lymph % (Auto) 21.2 L (25-40) % Mcnairy % (Auto) 6.3 (3-14) % Eos % (Auto) 1.7 L (2-4) % Baso % (Auto) 0.6 (0-2) % Neut # (Auto) 4700 (3211-4222) /uL Lymph # (Auto) 1400 (5563-4850) /uL Mcnairy # (Auto) 400 (0-900) /uL Eos # (Auto) 100 (0-450) /uL Baso # (Auto) 0 (0-100) /uL RBC Morphology See below Anisocytosis 1+ H Sodium 139 (137-145) mmol/L Potassium 2.9 L (3.4-5.1) mmol/L Chloride 103 (98-107) mmol/L Carbon Dioxide 26 (22-32) mmol/L BUN 21 H (7-17) mg/dL Creatinine 0.70 (0.52-1.04) mg/dL Estimated GFR > 60.0 (>60) mL/min BUN/Creatinine Ratio 30.0 H (6-22) Glucose 119 H (70-100) mg/dL Calcium 8.2 L (8.4-10.2) mg/dL Total Bilirubin 0.2 (0.2-1.3) mg/dL AST 26 (15-46) IU/L ALT 15 (9-52) IU/L Alkaline Phosphatase 52 (38-126) U/L Total Protein 6.1 L (6.3-8.2) g/dL Albumin 3.2 L (3.5-5.0) g/dL Globulin 2.9 (1.7-4.1) g/dL Albumin/Globulin Ratio 1.1 (1.0-2.8) Prolactin 7.6 (3.0-18.6) ng/mL Salicylates < 1.0 (<20) mg/dL Acetaminophen < 10 L (10-30) ug/mL Ethyl Alcohol < 10 ( - 10) mg/dL Point of Care Testing Glucose POC [address] scan - head: Radiologist's impression: PROCEDURE: CT HEAD/BRAIN W CON INDICATIONS: seizure headache odd behavior TECHNIQUE: 4.5 mm thick angled axial sections acquired from the foramen magnum to the vertex after the administration of intravenous contrast, with coronal and sagittal reformats. For radiation dose reduction, the following was used: automated exposure control, adjustment of mA and/or kV according to patient size. COMPARISON: [facility], CT, CT HEAD/BRAIN WO CON, 04/23/2019, 0:35. FINDINGS: Image quality: Excellent. CSF Spaces: Basal cisterns are patent. No extra-axial fluid collections. Ventricles are normal in size and shape. Brain: No midline shift. No intracranial bleeds or masses. No abnormal intracranial enhancement. Moreno-white interface appears normal. Stable appearance of diffuse cortical volume loss slightly more than expected for age. Skull and face: Calvarium and visualized facial bones appear intact, without suspicious lesions. Sinuses: Visualized sinuses and mastoids are clear. IMPRESSION: Stable CT evaluation of the head without acute intracranial abnormalities. No mass or mass effect. Dictated by: Ottoniel Rollins M.D. on 05/05/2019 at 19:06 Approved by: Ottoniel Rollins M.D. on 05/05/2019 at 19:07 [facility] Narrative Medical decision making narrative: Patient has been here a few times over the past few weeks for the same thing. Questionable seizure prolactin actually does not show elevation or suggest seizure. She was able to move and lift her head up during her eye blinking episodes she had IV started in her right hand she apparently did touch it and then she wiped her eye and felt burning from the alcohol. She immediately started screaming after that. I told her that she was not getting any narcotic medication for her headache. She was offered Tylenol and Toradol. She was given Toradol she says it did not help at all she got herself out of bed started asking for a commode she had a bedside commode. She says Toradol did not help are she wants something more was again explained that she was not going to get anything more. Patient's potassium is noted to be low at 2.9 along with her hemoglobin at 7.9. She has previously had anemia, 04/05/2019 showed hemoglobin of 8.4 and hematocrit 26.0, 04/23/2019 hemoglobin 10.1 hematocrit 21.4 today at 7.1 and 24.9. She denies any black stools or vomiting blood. Her potassium is replaced. At this time she is wanting to leave and go to a different hospital. She does not seem to be symptomatic for her anemia. No active bleeding history of anemia possible iron deficiency iron is noted on her med list however her MCV is 82. Patient refused to have her IV taken out because she was going to go to a different hospital. Police were called however her caregiver was able to come into the room and help her she was agreeable to have her IV taken out and patient was discharged. Discharge Plan Departure Patient Disposition: Home Clinical Impression: Acute hypokalemia Migraine Qualifiers: Migraine type: without aura Status migrainosus presence: without status migrainosus Intractability: not intractable Qualified Code(s): G43.009 - Migraine without aura, not intractable, without status migrainosus Anemia Qualifiers: Anemia type: unspecified type Qualified Code(s): D64.9 - Anemia, unspecified Discharge Date/Time: 05/05/19 19:30 Instructions: Anemia, DI for Migraine Activity Restrictions/Additional Instructions: *You have been diagnosed with hypokalemia, anemia, migraine *What to do: Your hemoglobin today is 7.9, hematocrit is 24.9. It is very important that you have this blood work recheck with her primary doctor. Please continue to take your iron supplement as previously recommended is also recommended that he see a neurologist to discuss your seizures and need for medication. *Continue to take medications as directed *Follow up with your primary care provider in 2-3 days *Return to ER if you should have passing out, bloody stool or any new, worsening or concerning symptoms Prescriptions: No Action cholecalciferol (vitamin D3) 50,000 unit capsule 50,000 unit PO QWEEK RF: 0 lactulose 10 gram packet 20 gram PO BID RF: 0 mineral oil enema See Rx Instructions [place] .COMPLEX RF: 0 promethazine 25 mg tablet 25 mg PO Q6H PRN (Reason: Nausea) RF: 0 calcium carbonate [Tums] 500 MG tablet,chewable 500 mg PO BIDP PRN (Reason: Heartburn) Qty: 0 RF: 0 polyethylene glycol 3350 [Miralax] 17 GM powder in packet 17 gm PO QDAY Qty: 1 RF: 3 ranitidine HCl 150 mg capsule 150 mg PO BID Qty: 60 RF: 0 albuterol sulfate [Ventolin HFA] 90 mcg/actuation HFA aerosol inhaler 2 puff INHALATION QIDP PRN (Reason: shortness of breath or wheezing) Qty: 2 RF: 3 docusate sodium 250 mg capsule 250 mg PO BID Qty: 60 RF: 3 ferrous sulfate [FeroSul] 325 mg (65 mg iron) tablet 325 mg PO DAILY Qty: 30 RF: 5 meclizine 25 mg tablet,chewable 25 mg PO DAILY PRN (Reason: dizziness) Qty: 30 RF: 2 trazodone 100 mg tablet 200 mg PO BEDTIME PRN (Reason: insomnia) Qty: 60 RF: 5 omeprazole 40 mg capsule,delayed release(DR/EC) 40 mg PO DAILY Qty: 30 RF: 2 gabapentin 300 mg capsule 300 mg PO Q12H Qty: 180 RF: 0 Ajovy 225 mg/1.5 mL syringe 225 mg SUBCUT QMONTH Qty: 1.5 RF: 11 zonisamide 25 mg capsule 25 mg PO DAILY Qty: 120 RF: 2 Zomig 5 mg spray,non-aerosol 1 spray NASAL ONCE Qty: 6 RF: 1 Referrals: Sonya Short DO [Primary Care Provider] -
[2019-05-05 18:29] LABS: Add Manual Diff / Slide Review NO; Basophils Absolute Auto 0 /uL (0-100); Basophils Percent Auto 0.6 % (0-2); Eosinophils Absolute Auto 100 /uL (0-450); Eosinophils Percent Auto 1.7 % (2-4); Hematocrit 24.9 % (36-46); Hemoglobin 7.9 g/dL (12.0-16.0); Lymphocytes Absolute Auto 1400 /uL (1100-4500); Lymphocytes Percent Auto 21.2 % (25-40); Mean Corpuscular HGB Conc 31.7 % (30-36); Mean Corpuscular Hemoglobin 26.1 PG (26-34); Mean Corpuscular Volume 82.1 fL (80-100); Monocytes Absolute Auto 400 /uL (0-900); Monocytes Percent Auto 6.3 % (3-14); Neutrophils Absolute Auto 4700 /uL (1500-7000); Neutrophils Percent Auto 70.2 % (50-75); Platelet Count 465 X10^3/uL (150-400); Red Blood Cell Count 3.03 X10^6/uL (4.0-5.2); White Blood Cell Count 6.7 X10^3/uL (4.5-11.0)
[2019-05-05] MEDS: SODIUM CHLORIDE 0.9% 1,000 ML 1000 ML IV (18:30)
[2019-05-05] MEDS: KETOROLAC 60 MG/2 ML VIAL 30 MG IV (18:30)
--- NOTE | 2019-05-05 18:30 | PC.NURSE ---
1809: while attempting to start iv pt appears to have a seizure, face is twitching, and left arm is squeezed shut, right arm remains still as attempting iv. pt then speaks clearly as soon as iv is started and blood is drawn, asking for pain medicine, appears to get angry. pt raising voice at staff states her eye is burning, demanding something be done. nurse was at bedside with flush for eye. pt refusing to allow treatment. pt becoming angry, sitting up in bed raising voice. pt then states to another staff memeber, the nurse starting her iv touched her eye with the alcohol she was using to start iv, continues to raise voice. and refuses to give her birthday to verify pt's identity to both send her blood to lab and administer medication. continually repeats no im not going to because my eye is burning. again attmepting to flush eye and pt continues to refuse.
[2019-05-05] MEDS: ONDANSETRON 4 MG/2 ML INJ IV (18:31)
[2019-05-05 18:44] LABS: Acetaminophen < 10 ug/mL (10-30); Alanine Aminotransferase 15 IU/L (9-52); Albumin 3.2 g/dL (3.5-5.0); Albumin Globulin Ratio 1.1 (1.0-2.8); Alkaline Phosphatase 52 U/L (38-126); Aspartate Aminotransferase 26 IU/L (15-46); Bilirubin Total 0.2 mg/dL (0.2-1.3); Blood Urea Nitrogen 21 mg/dL (7-17); Calcium 8.2 mg/dL (8.4-10.2); Carbon Dioxide 26 mmol/L (22-32); Chloride 103 mmol/L (98-107); Estimated Glomerular Filt Rate > 60.0 mL/min (>60); Ethanol (ETOH) < 10 mg/dL; Globulin 2.9 g/dL (1.7-4.1); Glucose 119 mg/dL (70-100); HEMOLYSIS < 15 (0-50); Potassium 2.9 mmol/L (3.4-5.1); Salicylate < 1.0 mg/dL (<20); Sodium 139 mmol/L (137-145); Total Protein 6.1 g/dL (6.3-8.2)
[2019-05-05 18:50] LABS: Anisocytosis 1+
[2019-05-05 19:00] LABS: Prolactin 7.6 ng/mL (3.0-18.6)
[2019-05-05 19:14] VITALS: BP 106/54; PULSE 100; RESP 18; O2SAT 100
[2019-05-05] MEDS: POTASSIUM CHLORIDE 20 MEQ TAB 40 MEQ PO (19:22)
--- NOTE | 2019-05-05 19:47 | PC.NURSE ---
Pt being discharged, pt refused removal of IV, Pt attempted to gently push her way out the door, pt asked to step back, she did. Police were notified and arrived spoke with patient. Caregiver spoke to patient and she agreed to have IV removed.
--- NOTE | 2019-05-05 20:05 | PC.NURSE ---
Side note: Pt stated she was taking commode with her, clarified the entire commode, notified patient that was hospital property multiple times before she agreed to leave commode.
== END 2019-05-05 19:30 | disposition home or self-care (01) ==
PROVIDERS: Emergency Provider Emergency Medicine; PCP Family Medicine
DX: G43.009 Migraine without aura, not intractable, without status migrainosus (principal); D64.9 Anemia, unspecified; R56.9 Unspecified convulsions
CPT/HCPCS: 36415; 70460; 80053; 80320; 80329; 82962; 84146; 85025; 96361; 96374; 96375; 99283; 99284; G0480; J1885; J2405

== ENCOUNTER 2019-06-25 22:38 | Emergency (ER) | payer OTHER, MEDICAID, SELFPAY ==
[2019-06-25 22:15] VITALS: BP 125/66; PULSE 107; RESP 19; TEMP 37.1; O2SAT 99; BMI 19.5
--- NOTE | 2019-06-25 22:52 | ED_ITS ---
HPI - Headache <Kathy Foss, DO - Last Filed: 06/26/19 07:46> General Chief Complaint: Headache Stated Complaint: Migraine Time Seen by Provider: 06/25/19 22:51 Source: patient and EMS Mode of arrival: EMS Limitations: no limitations History of Present Illness HPI Narrative: This is a 54-year-old female who comes to the emergency department with complaint of migraine. Patient states that the migraine is so bad she wants to kill herself. She states she has had pain on and off intermit tently and that she has come up with a plan that would be that she would go to the grocery store and cut some once neck so that the appliance servicer would come and then shoot her. Patient states she has had migraines intermittently. She also has a history of seizures multiple sclerosis. She states she is not taking her medications currently. Patient is complaining of headache, she denies any nausea or vomiting. She is complaining of a little bit of epigastric pain. She denies shortness of breath. She denies any issues with bowel movements. Occasionally urinary frequency or urgency. She denies any fevers or chills. No cold cough or congestion. She has a little bit of numbness in her right arm which she states can be an aura for her seizures. She states she has tonic clonic seizures as well as absence seizures. Her neurologist is Dr. Antonio Gilbert Related Data Home Medications Medication Instructions Recorded Confirmed calcium carbonate [Tums] 500 mg PO BIDP PRN #0 05/27/17 04/20/19 cholecalciferol (vitamin D3) 50,000 unit PO QWEEK 04/22/18 04/20/19 50,000 unit capsule lactulose 10 gram oral packet 20 gram PO BID 04/22/18 04/20/19 mineral oil See Rx Instructions [place] .COMPLEX 04/22/18 04/20/19 promethazine 25 mg tablet 25 mg PO Q6H PRN tab 04/22/18 04/20/19 Previous Rx's Medication Instructions Recorded polyethylene glycol 3350 [Miralax] 17 gm PO QDAY #1 bot 07/30/17 ranitidine HCl 150 mg capsule 150 mg PO BID #60 cap 11/27/17 albuterol sulfate 90 mcg/actuation 2 puff INHALATION QIDP PRN #2 ea 04/29/19 aerosol inhaler docusate sodium 250 mg capsule 250 mg PO BID #60 cap 11/08/18 ferrous sulfate 325 mg (65 mg 325 mg PO DAILY #30 tab 11/08/18 iron) tablet meclizine 25 mg chewable tablet 25 mg PO DAILY PRN #30 tab 11/08/18 trazodone 100 mg tablet 200 mg PO BEDTIME PRN #60 tab 11/08/18 omeprazole 40 mg capsule,delayed 40 mg PO DAILY #30 cap 12/13/18 release fremanezumab-vfrm 225 mg/1.5 mL 225 mg SUBCUT QMONTH #1.5 ml 01/21/19 subcutaneous syringe zonisamide 25 mg capsule 25 mg PO DAILY #120 cap 01/21/19 gabapentin 300 mg capsule 300 mg PO Q12H #180 cap 03/04/19 zolmitriptan 5 mg nasal spray 1 spray NASAL ONCE #6 each 04/25/19 Allergies Allergy/AdvReac Type Severity Reaction Status Date / Time droperidol [DROPERIDOL] Allergy Severe throat Verified 05/05/19 17:40 swelling sumatriptan [From IMITREX] Allergy Severe throat Verified 05/05/19 17:40 swelling prochlorperazine Allergy Unknown Verified 05/05/19 17:40 [From COMPAZINE] Iodine and Iodide Containing Allergy Verified 05/05/19 17:40 Produc Review of Systems <Kathy Foss DO - Last Filed: 06/26/19 07:46> Review of Systems ROS Unobtainable: All systems reviewed & are unremarkable except as noted in HPI and below Patient History <Kathy Foss DO - Last Filed: 06/26/19 07:46> Social History Smoking Status: Current some day smoker alcohol intake: current substance use type: does not use and marijuana Smoking Status: Current some day smoker alcohol intake frequency: 0-2 drinks per day Substance Use Type: does not use Exam <Kathy Foss DO - Last Filed: 06/26/19 07:46> Narrative Exam Narrative: GEN: well nourished, well appearing elderly female, alert and oriented x 3, patient appears to be in mild distress. HEENT: Atraumatic, pupils are equal round reactive to light, extraocular movements are intact, nares are clear, TMs are clear with no fluid, there is no conjunctival pallor. Throat is clear without any exudates, erythema, tonsillar enlargement or uvular deviation, no facial droop. No meningeal signs. HEART: Regular rate and rhythm without murmur, clicks, rubs. Pulses are equal in upper and lower extremities LUNGS:Lungs clear to auscultation, no wheezes, rales, crackles, chest moves symmetrically ABD:bowel sounds normal, soft, non-tender, no guarding, rebound, rigidity, no masses noted, no hepatosplenomegaly :No CVA tenderness MSCL: Non-tender, full range of motion, gait not tested. NEURO:CN 2-12 intact, sensation normal, reflexes 2/4 upper and lower extremities. SKIN: No rash, no erythema. Initial Vital Signs Initial Vital Signs: Vital Signs Temperature 98.7 F 06/25/19 22:15 Pulse Rate 107 H 06/25/19 22:15 Respiratory Rate 06/25/19 22:15 Blood Pressure 125/66 06/25/19 22:15 Pulse Oximetry 99 06/25/19 22:15 <Tj Nicholas DO - Last Filed: 06/27/19 08:40> Initial Vital Signs Initial Vital Signs: Vital Signs Temperature 98.7 F 06/25/19 22:15 Pulse Rate 107 H 06/25/19 22:15 Respiratory Rate 06/25/19 22:15 Blood Pressure 125/66 06/25/19 22:15 Pulse Oximetry 99 06/25/19 22:15 Scores <Kathy Foss DO - Last Filed: 06/26/19 07:46> GCS [place] coma scale eye opening: Spontaneous [place] coma scale verbal response: Orientated [place] coma scale motor response: Obey commands [place] coma scale total score: 15 Course <Kathy Foss DO - Last Filed: 06/26/19 07:46> Orders Ordered: Discontinued Medications Hydrocodone Bitart/Acetaminophen ([place] 5/325) 1 tab PO NOW ONE Stop: 06/26/19 05:04 Last Admin: 06/26/19 05:30 Dose: 1 tab Documented by: SIMONE Dexamethasone (Decadron) 10 mg IV NOW ONE Stop: 06/25/19 22:53 Last Admin: 06/26/19 00:41 Dose: 10 mg Documented by: SIMONE Diphenhydramine HCl (Benadryl) 25 mg IV NOW ONE Stop: 06/25/19 22:53 Last Admin: 06/26/19 00:41 Dose: 25 mg Documented by: SIMONE Sodium Chloride (Normal Saline 0.9%) 1,000 mls @ 1,000 mls/hr IV BOLUS ONE Stop: 06/25/19 23:51 Last Admin: 06/26/19 10:34 Dose: Not Given Documented by: OSWALD Ketorolac Tromethamine (Toradol) 30 mg IV NOW ONE Stop: 06/25/19 22:53 Last Admin: 06/26/19 00:41 Dose: 30 mg Documented by: SIMONE Ketorolac Tromethamine (Toradol) 30 mg IM NOW ONE Stop: 06/26/19 07:01 Last Admin: 06/26/19 07:53 Dose: 30 mg Documented by: OSWALD Metoclopramide HCl (Reglan) 10 mg IV NOW ONE Stop: 06/25/19 22:53 Last Admin: 06/26/19 00:42 Dose: 10 mg Documented by: SIMONE Vital Signs Vital signs: Vital Signs - 8 hr 06/26/19 03:05 06/26/19 04:07 06/26/19 06:04 Pulse Rate 82 71 74 Respiratory Rate 21 15 16 Blood Pressure [Left Arm] 130/69 124/70 134/70 Pulse Oximetry 100 100 94 06/26/19 09:54 Pulse Rate 74 Respiratory Rate 14 Blood Pressure [Left Arm] 130/70 Pulse Oximetry 100 <Tj Nicholas, DO - Last Filed: 06/27/19 08:40> Course Course Narrative: Patient received in sign-out from Dr. Foss. We're currently awaiting social work to evaluate her underlying depression and anxiety which seems to be stemming from her gradually worsening neurologic disease. She becomes anxious that she will have another seizure and depressed that she can no longer do things that used to be easy for her. She has never had mental health evaluation. She does not feel suicidal or homicidal. She is very open to the concept of outpatient follow-up. Orders Ordered: Discontinued Medications Hydrocodone Bitart/Acetaminophen ([place] 5/325) 1 tab PO NOW ONE Stop: 06/26/19 05:04 Last Admin: 06/26/19 05:30 Dose: 1 tab Documented by: SIMONE Dexamethasone (Decadron) 10 mg IV NOW ONE Stop: 06/25/19 22:53 Last Admin: 06/26/19 00:41 Dose: 10 mg Documented by: SIMONE Diphenhydramine HCl (Benadryl) 25 mg IV NOW ONE Stop: 06/25/19 22:53 Last Admin: 06/26/19 00:41 Dose: 25 mg Documented by: SIMONE Sodium Chloride (Normal Saline 0.9%) 1,000 mls @ 1,000 mls/hr IV BOLUS ONE Stop: 06/25/19 23:51 Last Admin: 06/26/19 10:34 Dose: Not Given Documented by: OSWALD Ketorolac Tromethamine (Toradol) 30 mg IV NOW ONE Stop: 06/25/19 22:53 Last Admin: 06/26/19 00:41 Dose: 30 mg Documented by: SIMONE Ketorolac Tromethamine (Toradol) 30 mg IM NOW ONE Stop: 06/26/19 07:01 Last Admin: 06/26/19 07:53 Dose: 30 mg Documented by: OSWALD Metoclopramide HCl (Reglan) 10 mg IV NOW ONE Stop: 06/25/19 22:53 Last Admin: 06/26/19 00:42 Dose: 10 mg Documented by: SIMONE Vital Signs Vital signs: Vital Signs - 8 hr 06/26/19 03:05 06/26/19 04:07 06/26/19 06:04 Pulse Rate 82 71 74 Respiratory Rate 21 15 16 Blood Pressure [Left Arm] 130/69 124/70 134/70 Pulse Oximetry 100 100 94 06/26/19 09:54 Pulse Rate 74 Respiratory Rate 14 Blood Pressure [Left Arm] 130/70 Pulse Oximetry 100 MDM - Headache <Kathy Foss DO - Last Filed: 06/26/19 07:46> Lab Data Attestation: I reviewed the patient's lab results. Result diagrams: 06/26/19 00:10 06/26/19 00:10 Labs: Lab Results 06/26/19 06/26/19 06/26/19 Range/Units 00:10 00:10 00:10 WBC 7.0 (4.5-11.0) X10^3/uL RBC 3.38 L (4.0-5.2) X10^6/uL Hgb 8.1 L (12.0-16.0) g/dL Hct 25.3 L (36-46) % MCV 74.8 L (80-100) fL MCH 24.1 L (26-34) PG MCHC 32.2 (30-36) % RDW 20.1 H (11.6-14.8) % Plt Count 386 (150-400) X10^3/uL Neut % (Auto) 52.5 (50-75) % Lymph % (Auto) 35.4 (25-40) % [place] % (Auto) 6.6 (3-14) % Eos % (Auto) 4.1 H (2-4) % Baso % (Auto) 1.4 (0-2) % Neut # (Auto) 3700 (2554-9286) /uL Lymph # (Auto) 2500 (6113-2904) /uL [place] # (Auto) 500 (0-900) /uL Eos # (Auto) 300 (0-450) /uL Baso # (Auto) 100 (0-100) /uL RBC Morphology See below Hypochromasia 2+ H Anisocytosis 2+ H PT 9.4 L (10.1-12.7) SECONDS INR 0.8 L (0.9-1.3) APTT 20 L (26.4-36.2) SECONDS Sodium 138 (137-145) mmol/L Potassium 3.6 (3.4-5.1) mmol/L Chloride 104 (98-107) mmol/L Carbon Dioxide 25 (22-32) mmol/L BUN 16 (7-17) mg/dL Creatinine 0.80 (0.52-1.04) mg/dL Estimated GFR > 60.0 (>60) mL/min BUN/Creatinine Ratio 20.0 (6-22) Glucose 88 (70-100) mg/dL Calcium 9.0 (8.4-10.2) mg/dL Total Bilirubin 0.4 (0.2-1.3) mg/dL AST 34 (14-36) IU/L ALT 19 (<35) IU/L Alkaline Phosphatase 70 (38-126) U/L Total Creatine Kinase (30-135) U/L CK-MB (CK-2) (<2.37) ng/mL CK-MB (CK-2) Rel Index (1.5-5.0) % Troponin I (0.01-0.034) ng/mL Total Protein 7.1 (6.3-8.2) g/dL Albumin 4.0 (3.5-5.0) g/dL Globulin 3.1 (1.7-4.1) g/dL Albumin/Globulin Ratio 1.3 (1.0-2.8) TSH (0.47-4.68) uIU/mL U Morph 300 ng/mL cutoff (Negative) Ur Oxycodone Screen (Negative) Urine Methadone Screen (Negative) Ur Barbiturates Screen (Negative) U Tricyclic Antidepress (Negative) Ur Phencyclidine Scrn (Negative) Ur Amphetamines Screen (Negative) U Methamphetamines Scrn (Negative) Ur MDMA Scrn (Ecstasy) (Negative) U Benzodiazepines Scrn (Negative) Urine Cocaine Screen (Negative) U Marijuana (THC) Screen (Negative) Ethyl Alcohol < 10 ( - 10) mg/dL 06/26/19 06/26/19 06/26/19 Range/Units 00:10 00:10 00:50 WBC (4.5-11.0) X10^3/uL RBC (4.0-5.2) X10^6/uL Hgb (12.0-16.0) g/dL Hct (36-46) % MCV (80-100) fL MCH (26-34) PG MCHC (30-36) % RDW (11.6-14.8) % Plt Count (150-400) X10^3/uL Neut % (Auto) (50-75) % Lymph % (Auto) (25-40) % [place] % (Auto) (3-14) % Eos % (Auto) (2-4) % Baso % (Auto) (0-2) % Neut # (Auto) (2938-7764) /uL Lymph # (Auto) (4941-7507) /uL [place] # (Auto) (0-900) /uL Eos # (Auto) (0-450) /uL Baso # (Auto) (0-100) /uL RBC Morphology Hypochromasia Anisocytosis PT (10.1-12.7) SECONDS INR (0.9-1.3) APTT (26.4-36.2) SECONDS Sodium (137-145) mmol/L Potassium (3.4-5.1) mmol/L Chloride (98-107) mmol/L Carbon Dioxide (22-32) mmol/L BUN (7-17) mg/dL Creatinine (0.52-1.04) mg/dL Estimated GFR (>60) mL/min BUN/Creatinine Ratio (6-22) Glucose (70-100) mg/dL Calcium (8.4-10.2) mg/dL Total Bilirubin (0.2-1.3) mg/dL AST (14-36) IU/L ALT (<35) IU/L Alkaline Phosphatase (38-126) U/L Total Creatine Kinase 120 (30-135) U/L CK-MB (CK-2) 1.76 (<2.37) ng/mL CK-MB (CK-2) Rel Index 1.5 (1.5-5.0) % Troponin I < 0.012 (0.01-0.034) ng/mL Total Protein (6.3-8.2) g/dL Albumin (3.5-5.0) g/dL Globulin (1.7-4.1) g/dL Albumin/Globulin Ratio (1.0-2.8) TSH 1.57 (0.47-4.68) uIU/mL U Morph 300 ng/mL cutoff Negative (Negative) Ur Oxycodone Screen Negative (Negative) Urine Methadone Screen Negative (Negative) Ur Barbiturates Screen Negative (Negative) U Tricyclic Antidepress Negative (Negative) Ur Phencyclidine Scrn Negative (Negative) Ur Amphetamines Screen Negative (Negative) U Methamphetamines Scrn Negative (Negative) Ur MDMA Scrn (Ecstasy) Negative (Negative) U Benzodiazepines Scrn Negative (Negative) Urine Cocaine Screen Negative (Negative) U Marijuana (THC) Screen Negative (Negative) Ethyl Alcohol ( - 10) mg/dL Urine Dip Bedside Urine Glucose Negative Bedside Urine Bilirubin - Negative Bedside Urine Ketone - Negative Urine Specific [place] 1.020 Bedside Urine Occult Blood - Negative Bedside Urine pH 6.0 Bedside Urine Protein - Negative Bedside Urine Urobilinogen - Negative Bedside Urine Nitrite - Negative Bedside Urine Leukocytes - Negative Esterase Imaging Data CT scan - head: Radiologist's impression: No acute disease in the brain Chest x-ray: My impression: nap ECG Data Attestation: I personally reviewed and interpreted this ECG as follows: Prior ECG tracings: available for review Interpretation: Sinus rhythm rate 87 [place] 172 QRS is [address] No [address] elevation or depression. MDM Narrative Medical decision making narrative: Patient has been sleeping in the department. Head CT is negative, chest x-ray is clear. No seizure activity has been noted in the department. Patient has had normal vitals throughout her stay. Patient' s hemoglobin appears stable and 8, renal function and liver enzymes along with troponin are all normal. TSH is normal. Patient was initially expressing suicidal ideation with a very specific plan that would involve harm to a stranger, she specifically requested to talk to someone for mental health. She states headache is still present was given 1 dose of p.o. medication here, a [place]. Plan for social work consult in the a.m. for evaluation. Patient states she is still having headache. In the past she has had issues with etoh, I explained I can give her another shot of the pain medication she received earlier but we will have to wait a little longer as it's a little too early. Patient signed out to Dr. Nicholas while awaiting social work evaluation. Patient is medically cleared. Patient had second dose of Toradol ordered. Breakfast ordered. <Tj Nicholas, DO - Last Filed: 06/27/19 08:40> Lab Data Labs: Lab Results 06/26/19 06/26/19 06/26/19 Range/Units 00:10 00:10 00:10 WBC 7.0 (4.5-11.0) X10^3/uL RBC 3.38 L (4.0-5.2) X10^6/uL Hgb 8.1 L (12.0-16.0) g/dL Hct 25.3 L (36-46) % MCV 74.8 L (80-100) fL MCH 24.1 L (26-34) PG MCHC 32.2 (30-36) % RDW 20.1 H (11.6-14.8) % Plt Count 386 (150-400) X10^3/uL Neut % (Auto) 52.5 (50-75) % Lymph % (Auto) 35.4 (25-40) % [place] % (Auto) 6.6 (3-14) % Eos % (Auto) 4.1 H (2-4) % Baso % (Auto) 1.4 (0-2) % Neut # (Auto) 3700 (4325-1909) /uL Lymph # (Auto) 2500 (7599-4498) /uL [place] # (Auto) 500 (0-900) /uL Eos # (Auto) 300 (0-450) /uL Baso # (Auto) 100 (0-100) /uL RBC Morphology See below Hypochromasia 2+ H Anisocytosis 2+ H PT 9.4 L (10.1-12.7) SECONDS INR 0.8 L (0.9-1.3) APTT 20 L (26.4-36.2) SECONDS Sodium 138 (137-145) mmol/L Potassium 3.6 (3.4-5.1) mmol/L Chloride 104 (98-107) mmol/L Carbon Dioxide 25 (22-32) mmol/L BUN 16 (7-17) mg/dL Creatinine 0.80 (0.52-1.04) mg/dL Estimated GFR > 60.0 (>60) mL/min BUN/Creatinine Ratio 20.0 (6-22) Glucose 88 (70-100) mg/dL Calcium 9.0 (8.4-10.2) mg/dL Total Bilirubin 0.4 (0.2-1.3) mg/dL AST 34 (14-36) IU/L ALT 19 (<35) IU/L Alkaline Phosphatase 70 (38-126) U/L Total Creatine Kinase (30-135) U/L CK-MB (CK-2) (<2.37) ng/mL CK-MB (CK-2) Rel Index (1.5-5.0) % Troponin I (0.01-0.034) ng/mL Total Protein 7.1 (6.3-8.2) g/dL Albumin 4.0 (3.5-5.0) g/dL Globulin 3.1 (1.7-4.1) g/dL Albumin/Globulin Ratio 1.3 (1.0-2.8) TSH (0.47-4.68) uIU/mL U Morph 300 ng/mL cutoff (Negative) Ur Oxycodone Screen (Negative) Urine Methadone Screen (Negative) Ur Barbiturates Screen (Negative) U Tricyclic Antidepress (Negative) Ur Phencyclidine Scrn (Negative) Ur Amphetamines Screen (Negative) U Methamphetamines Scrn (Negative) Ur MDMA Scrn (Ecstasy) (Negative) U Benzodiazepines Scrn (Negative) Urine Cocaine Screen (Negative) U Marijuana (THC) Screen (Negative) Ethyl Alcohol < 10 ( - 10) mg/dL 06/26/19 06/26/19 06/26/19 Range/Units 00:10 00:10 00:50 WBC (4.5-11.0) X10^3/uL RBC (4.0-5.2) X10^6/uL Hgb (12.0-16.0) g/dL Hct (36-46) % MCV (80-100) fL MCH (26-34) PG MCHC (30-36) % RDW (11.6-14.8) % Plt Count (150-400) X10^3/uL Neut % (Auto) (50-75) % Lymph % (Auto) (25-40) % [place] % (Auto) (3-14) % Eos % (Auto) (2-4) % Baso % (Auto) (0-2) % Neut # (Auto) (5347-2045) /uL Lymph # (Auto) (9119-1577) /uL [place] # (Auto) (0-900) /uL Eos # (Auto) (0-450) /uL Baso # (Auto) (0-100) /uL RBC Morphology Hypochromasia Anisocytosis PT (10.1-12.7) SECONDS INR (0.9-1.3) APTT (26.4-36.2) SECONDS Sodium (137-145) mmol/L Potassium (3.4-5.1) mmol/L Chloride (98-107) mmol/L Carbon Dioxide (22-32) mmol/L BUN (7-17) mg/dL Creatinine (0.52-1.04) mg/dL Estimated GFR (>60) mL/min BUN/Creatinine Ratio (6-22) Glucose (70-100) mg/dL Calcium (8.4-10.2) mg/dL Total Bilirubin (0.2-1.3) mg/dL AST (14-36) IU/L ALT (<35) IU/L Alkaline Phosphatase (38-126) U/L Total Creatine Kinase 120 (30-135) U/L CK-MB (CK-2) 1.76 (<2.37) ng/mL CK-MB (CK-2) Rel Index 1.5 (1.5-5.0) % Troponin I < 0.012 (0.01-0.034) ng/mL Total Protein (6.3-8.2) g/dL Albumin (3.5-5.0) g/dL Globulin (1.7-4.1) g/dL Albumin/Globulin Ratio (1.0-2.8) TSH 1.57 (0.47-4.68) uIU/mL U Morph 300 ng/mL cutoff Negative (Negative) Ur Oxycodone Screen Negative (Negative) Urine Methadone Screen Negative (Negative) Ur Barbiturates Screen Negative (Negative) U Tricyclic Antidepress Negative (Negative) Ur Phencyclidine Scrn Negative (Negative) Ur Amphetamines Screen Negative (Negative) U Methamphetamines Scrn Negative (Negative) Ur MDMA Scrn (Ecstasy) Negative (Negative) U Benzodiazepines Scrn Negative (Negative) Urine Cocaine Screen Negative (Negative) U Marijuana (THC) Screen Negative (Negative) Ethyl Alcohol ( - 10) mg/dL Urine Dip Bedside Urine Glucose Negative Bedside Urine Bilirubin - Negative Bedside Urine Ketone - Negative Urine Specific [place] 1.020 Bedside Urine Occult Blood - Negative Bedside Urine pH 6.0 Bedside Urine Protein - Negative Bedside Urine Urobilinogen - Negative Bedside Urine Nitrite - Negative Bedside Urine Leukocytes - Negative Esterase Discharge Plan Departure Patient Disposition: Home Clinical Impression: Migraine, Suicidal thoughts Discharge Date/Time: 06/26/19 11:50 Instructions: Depression, DI for Migraine, DI for Headache Activity Restrictions/Additional Instructions: *You have been diagnosed with [ chronic headaches, depression, anxiety ] *What to do: *Continue to take medications as directed *Follow up with your doctors this week as planned including Dr. Brooks tomorrow, Dr. Short on Thursday, and your therapist at [facility] on Thursday *Return to ER if you should have any new, worsening or concerning symptoms Prescriptions: No Action cholecalciferol (vitamin D3) 50,000 unit capsule 50,000 unit PO QWEEK RF: 0 lactulose 10 gram packet 20 gram PO BID RF: 0 mineral oil enema See Rx Instructions [place] .COMPLEX RF: 0 promethazine 25 mg tablet 25 mg PO Q6H PRN (Reason: Nausea) RF: 0 calcium carbonate [Tums] 500 MG tablet,chewable 500 mg PO BIDP PRN (Reason: Heartburn) Qty: 0 RF: 0 polyethylene glycol 3350 [Miralax] 17 GM powder in packet 17 gm PO QDAY Qty: 1 RF: 3 ranitidine HCl 150 mg capsule 150 mg PO BID Qty: 60 RF: 0 albuterol sulfate [Ventolin HFA] 90 mcg/actuation HFA aerosol inhaler 2 puff INHALATION QIDP PRN (Reason: shortness of breath or wheezing) Qty: 2 RF: 3 docusate sodium 250 mg capsule 250 mg PO BID Qty: 60 RF: 3 ferrous sulfate [FeroSul] 325 mg (65 mg iron) tablet 325 mg PO DAILY Qty: 30 RF: 5 meclizine 25 mg tablet,chewable 25 mg PO DAILY PRN (Reason: dizziness) Qty: 30 RF: 2 trazodone 100 mg tablet 200 mg PO BEDTIME PRN (Reason: insomnia) Qty: 60 RF: 5 omeprazole 40 mg capsule,delayed release(DR/EC) 40 mg PO DAILY Qty: 30 RF: 2 gabapentin 300 mg capsule 300 mg PO Q12H Qty: 180 RF: 0 [place] 225 mg/1.5 mL syringe 225 mg SUBCUT QMONTH Qty: 1.5 RF: 11 zonisamide 25 mg capsule 25 mg PO DAILY Qty: 120 RF: 2 Zomig 5 mg spray,non-aerosol 1 spray NASAL ONCE Qty: 6 RF: 1 Referrals: Sonya Short DO [Primary Care Provider] -
--- NOTE | 2019-06-25 22:53 | DI.CT.S_ITS ---
PROCEDURE: CT HEAD/BRAIN WO CON INDICATIONS: migraine, recent fall with head trauma TECHNIQUE: Noncontrast 4.5 mm thick angled axial sections acquired from the foramen magnum to the vertex, with coronal and sagittal reformats. For radiation dose reduction, the following was used: automated exposure control, adjustment of mA and/or kV according to patient size. COMPARISON: [facility], CT, CT HEAD/BRAIN W CON, 05/05/2019, 18:30. [facility], CT, CT HEAD/BRAIN WO CON, 04/23/2019, 0:35. FINDINGS: Image quality: Excellent. CSF spaces: Basal cisterns are patent. No extra-axial fluid collections. The ventricles are symmetric in size and shape. There is mild cerebral volume loss, with resultant ventricular and sulcal prominence. Brain: No intracranial hemorrhage, mass, or mass effect. There are subcortical, periventricular and deep white matter hypodensities consistent with mild chronic small vessel ischemic changes. There is intracranial internal carotid artery atherosclerosis. Skull and face: Calvarium and visualized facial bones are intact, without suspicious lesions. Sinuses: Visualized sinuses and mastoids are clear. IMPRESSION: 1. No acute intracranial abnormality. 2. Mild chronic white matter small vessel ischemic changes and cerebral volume loss. Dictated by: Brian Moreno M.D. on 06/26/2019 at 7:31 Approved by: Brian Moreno M.D. on 06/26/2019 at 7:33
--- NOTE | 2019-06-25 22:54 | DI.RAD.S_ITS ---
PROCEDURE: XR CHEST 1V INDICATIONS: migraine TECHNIQUE: One view of the chest was acquired. COMPARISON: [facility], , CHEST 1 VIEW, 05/27/2017, 10:46. FINDINGS: Surgical changes and devices: None. Lungs and pleura: Lungs are clear. No pleural effusions or pneumothorax. Mediastinum: Mediastinal contours appear normal. Heart size is normal. Bones and chest wall: No suspicious bony lesions. Overlying soft tissues appear unremarkable. IMPRESSION: 1. No acute cardiopulmonary disease. Dictated by: Brian Moreno M.D. on 06/26/2019 at 8:31 Approved by: Brian Moreno M.D. on 06/26/2019 at 8:31
[2019-06-26] VITALS (7 sets, daily range): BP systolic 116–154; BP diastolic 64–74; PULSE 71–86; RESP 14–21; O2SAT 94–100
[2019-06-26 00:26] LABS: Add Manual Diff / Slide Review NO; Basophils Absolute Auto 100 /uL (0-100); Basophils Percent Auto 1.4 % (0-2); Eosinophils Absolute Auto 300 /uL (0-450); Eosinophils Percent Auto 4.1 % (2-4); Hematocrit 25.3 % (36-46); Hemoglobin 8.1 g/dL (12.0-16.0); Lymphocytes Absolute Auto 2500 /uL (1100-4500); Lymphocytes Percent Auto 35.4 % (25-40); Mean Corpuscular HGB Conc 32.2 % (30-36); Mean Corpuscular Hemoglobin 24.1 PG (26-34); Mean Corpuscular Volume 74.8 fL (80-100); Monocytes Absolute Auto 500 /uL (0-900); Monocytes Percent Auto 6.6 % (3-14); Neutrophils Absolute Auto 3700 /uL (1500-7000); Neutrophils Percent Auto 52.5 % (50-75); Platelet Count 386 X10^3/uL (150-400); Red Blood Cell Count 3.38 X10^6/uL (4.0-5.2); Red Cell Distribution Width 20.1 % (11.6-14.8)
[2019-06-26 00:31] LABS: Creatine Kinase 120 U/L (30-135)
[2019-06-26 00:32] LABS: INR 0.8 (0.9-1.3); Prothrombin Time 9.4 SECONDS (10.1-12.7)
[2019-06-26 00:34] LABS: PTT Partial Thromboplastin Tim 20 SECONDS (26.4-36.2)
[2019-06-26 00:35] LABS: Alanine Aminotransferase 19 IU/L (<35); Albumin Globulin Ratio 1.3 (1.0-2.8); Alkaline Phosphatase 70 U/L (38-126); Aspartate Aminotransferase 34 IU/L (14-36); Bilirubin Total 0.4 mg/dL (0.2-1.3); Blood Urea Nitrogen 16 mg/dL (7-17); Carbon Dioxide 25 mmol/L (22-32); Chloride 104 mmol/L (98-107); Estimated Glomerular Filt Rate > 60.0 mL/min (>60); Ethanol (ETOH) < 10 mg/dL; Globulin 3.1 g/dL (1.7-4.1); Glucose 88 mg/dL (70-100); HEMOLYSIS < 15 (0-50); Potassium 3.6 mmol/L (3.4-5.1); Sodium 138 mmol/L (137-145); Total Protein 7.1 g/dL (6.3-8.2)
[2019-06-26] MEDS: DEXAMETHASONE 10 MG/ML VIAL IV (00:41)
[2019-06-26] MEDS: KETOROLAC 60 MG/2 ML VIAL 30 MG IV (00:41)
[2019-06-26] MEDS: diphenhydrAMINE 50 MG/ML VIAL 25 MG IV (00:41)
[2019-06-26] MEDS: METOCLOPRAMIDE 10 MG/2 ML INJ IV (00:42)
[2019-06-26 00:45] LABS: Troponin I < 0.012 ng/mL (0.01-0.034)
[2019-06-26 00:47] LABS: CKMB % Relative Index 1.5 % (1.5-5.0); Creatine Kinase MB 1.76 ng/mL (<2.37)
[2019-06-26 00:50] LABS: Anisocytosis 2+; Hypochromasia 2+
[2019-06-26 01:03] LABS: Thyroid Stimulating Hormone 1.57 uIU/mL (0.47-4.68)
[2019-06-26 01:14] LABS: UR Morphine/Opiate cutoff 300 Negative (Negative); Ur Creatinine Normal (Normal); Ur Specific Gravity Normal (Normal); Urine Amphetamines Negative (Negative); Urine Barbiturates Negative (Negative); Urine Benzodiazepines Negative (Negative); Urine Cocaine Negative (Negative); Urine MDMA Negative (Negative); Urine Methadone Negative (Negative); Urine Methamphetamines Negative (Negative); Urine Oxycodone Negative (Negative); Urine Phencyclidine Negative (Negative); Urine Tetrahydrocannabinol Negative (Negative); Urine Tricyclic Antidepressant Negative (Negative); Urine pH Normal (Normal)
[2019-06-26] MEDS: HYDROCODONE/ACET 5/325 TABLET 1 TAB PO (05:30)
[2019-06-26] MEDS: KETOROLAC 60 MG/2 ML VIAL 30 MG IM (07:53)
--- NOTE | 2019-06-26 14:15 | CM.SWNOTE ---
TANK HOUSE OPERATOR Note This TANK HOUSE OPERATOR met w/Jennie at bedside in the AM, explained SW role, and Jennie led by saying she wasn't sure if she was going home yet and needed to figure out what I'm going to do about these seizures. This TANK HOUSE OPERATOR unable to make much progress in discussing thoughts of suicide/anxiety/depression w/ Jennie and so requested that Dr Nicholas do short joint visit to discuss medical reason for DC today; Dr Nicholas was also able to encourage Jennie to discuss SI/anxiety and resources w/this TANK HOUSE OPERATOR and Jennie agreeable. Had lengthy conversation w/Jennie and then asked permission to call her spouse Kerwin. Jennie able to engage in a goal directed conversation although short term memory loss and confusion re: life details, services in place, and appts was noted by this TANK HOUSE OPERATOR. This TANK HOUSE OPERATOR normalized and validated Jennie's ongoing thoughts of suicide sec to chronic pain and disability d/t her medical co-morbidities. Jennie admitted to continued grief over losing her son approx 3 years ago. Jennie admitted to feelings of isolation, hopelessness, feelings of guilt/self hatred for thinking about suicide, but very importantly Jennie was still hopeful and planning for her future with her spouse and family, Jennie stated many times she would never kill herself d/t her maryjane and because I'm not going to hell. Jennie agreeable to seeking help for her ongoing anxiety/depression and agreeable to contact w/BRAYAN to help secure counseling appt to address ongoing feelings of anxiety and SI. Then spoke to spouse Kerwin and received a lot of additional, and somewhat conflictive, information. Kerwin shared that he schedules all of his 's appointments. Kerwin has scheduled an appt w/ Dr Lloyd at the pain clinic for tomorrow, appt w/ Sonya Short Thursday and w/ a new counselor through [facility], on Thursday. Neither Jennie nor Kerwin drive but both have JENNIFER cgs, JENNIFER is Jessica. Cgs provide transport. Kerwin explains that Jennie often threatens suicide because the pain is too much, Jennie had been going to a counselor through [facility] but compliance was erratic so they requested she find another provider. Kerwin continued to state he feels he can keep Jennie safe and has this far, but admits to burn out and has been working w/JENNIFER Lopez to research assisted living and usp care options. Kerwin, Jennie and JENNIFER cgs/KESHIA met together last Thursday to discuss POC, Kerwin unsure Jennie would remember. Kerwin admits that Jennie has been non-compliant in general w/efforts secured to get her healthy which is frustrating to him. Both Jennie and Kerwin agreeable to this TANK HOUSE OPERATOR securing transport through Medicaid transportation, Jennie has been medically cleared and is denying current plan for self harm or harm to others. Placed call to [employer] P#[phone], requested cab ride be scheduled for transport home to [facility], transport arrived at approx. 1215. Provided Provider One #. Updated ED staff w/summary of above. Peace Mcknight, TANK HOUSE OPERATOR TANK HOUSE OPERATOR Consult/YOLANDA Carrillo TANK HOUSE OPERATOR - Range Management Specialist Assessment Start: 06/26/19 12:00 Freq: Status: Active Protocol: Document 06/26/19 12:01 JACQUELIN (Rec: 06/26/19 12:25 [id number]) TANK HOUSE OPERATOR/Range Management Specialist Assessment Start date 06/26/19 Visit Start Time 09:00 End date 06/26/19 Visit End Time 12:00 Total time Care Management spent on 210 minutes patient visit-in minutes Presenting Problem Requested by ED providers Dr Kathy Foss and Dr Nicholas to speak w/Jennie about stated feelings of hopelessness and anxiety sec to chronic migraine pain and seizures. Jennie is otherwise medically ready to DC the ED Suicdial ideation states sec to chronic pain, has plan to go to a store, threaten someone's life w/a knife and wait for police to respond and , per Jennie, she envisions they would shoot her Precipitating Event(s) Migraine and ongoing anxiety/ panic attacks Current Behavioral Health Provider(s) New to [facility] and Include Facility, Provider, Ph. # spouse Kerwin both have appts w/ new counselor Brea at [facility] on Thursday06.29.19, Kerwin hopeful Jennie will get connected with their psychiatrist to assist w/ medication management. Dr Gilbert, neurologist assisting w/pain medication ideas, Dr Lloyd to assist w/ recommendations on alternative treatment options for ongoing and chronic pain Psych. Hx Mental Health and Chemical Anxiety, depression, suicidal Dependency ideation x2 years per spouse Kerwin, h/o counseling at [facility], non compliant w/ appt times so [facility] terminated treatment, per spouse Family Hx of Behavioral Abuse Unknown Psychiatric Hospitalizations (date(s)/ Unknown location) Support System(s) Spouse Kerwin, numerous children and grandchildren living in [facility], JENNIFER Oates and JENNIFER Lopez, medical providers Dr Gilbert, Dr Lloyd, Sonya Short and now [facility] behavioral health School/Work Disabled Legal Matters - Outstanding Issues Unknown Orientation (Person/Place/Time) A+O w/this TANK HOUSE OPERATOR w/ short term memory loss noted, Jennie confused at times throughout our conversation but able to discuss safety measures in place at home w/spouse Kerwin as a good support to her. Affect soft spoken, pleasant and easily re directable Thought Content - Specify/Describe Admits to obsessing about her Obsessions, Delusions, Hallucinations thoughts not being right ie suicidal ideation, denies hallucinations Thought Processes (Vfpuhwg-Viigydpe-Mllt goal directed but not 100% Upnoaywj-Xeenwdco-Bfvluhnpcl- logical, moments of confusion Lfhzqctijktohk-Kbbples-Pofnjohdnzei- and repeats herself to this Thought Blocking) TANK HOUSE OPERATOR and staff, possibly mild dementia or confusion sec to MS and seizures/migraines ? Cognitive baseline unknown Speech (Ujcyjr-Rzlb-Jxanqdm-Rapid-Soft- Slow but w/in normal limits Loud-Pressured) Motor (Cameoj-Pkplydhfl-Hpnb-Other) Normal Insight (Present-Partially Present- Impaired Impaired) Judgement (Intact-Impaired) Impaired Impulse Control (Adequate-Impaired) Impaired Memory (Nsfittnuy-Gcgito-Qmpxxa, Impaired Impaired-Intact) Concentration (Intact-Impaired) Intact Attention (Intact-Impaired) Intact, although distracts easily Behavior (Appropriate-Inappropriate) Appropiate Suicidal Ideation (Plan) Yes Homicidal Ideation (Plan) No: Would not hurt someone but envisions threats to summon PD Comment See Narrative Intervention See Narrative
== END 2019-06-26 11:50 | disposition home or self-care (01) ==
PROVIDERS: Emergency Medicine; Emergency Provider Emergency Medicine; PCP Family Medicine
DX: G43.909 Migraine, unspecified, not intractable, without status migrainosus (principal); R45.851 Suicidal ideations; R10.13 Epigastric pain
CPT/HCPCS: 70450; 71045; 80053; 80305; 80320; 81003; 82550; 82553; 84443; 84484; 85025; 85610; 85730; 93005; 93010; 96372; 96374; 96375; 99284; 99285; J1100; J1200; J1885; J2765

== ENCOUNTER 2019-07-07 15:10 | Emergency (ER) | payer OTHER, MEDICAID, SELFPAY ==
[2019-07-07 15:33] VITALS: BP 146/88; PULSE 94; RESP 16; TEMP 36.2; O2SAT 97; BMI 20.8
[2019-07-07 16:31] LABS: Add Manual Diff / Slide Review NO; Basophils Absolute Auto 100 /uL (0-100); Basophils Percent Auto 2.9 % (0-2); Eosinophils Absolute Auto 0 /uL (0-450); Eosinophils Percent Auto 0.4 % (2-4); Hematocrit 29.1 % (36-46); Hemoglobin 9.2 g/dL (12.0-16.0); Lymphocytes Absolute Auto 1300 /uL (1100-4500); Lymphocytes Percent Auto 26.1 % (25-40); Mean Corpuscular HGB Conc 31.5 % (30-36); Mean Corpuscular Hemoglobin 23.3 PG (26-34); Mean Corpuscular Volume 73.9 fL (80-100); Monocytes Absolute Auto 300 /uL (0-900); Monocytes Percent Auto 6.2 % (3-14); Neutrophils Absolute Auto 3200 /uL (1500-7000); Neutrophils Percent Auto 64.4 % (50-75); Platelet Count 571 X10^3/uL (150-400); Red Blood Cell Count 3.94 X10^6/uL (4.0-5.2); Red Cell Distribution Width 19.9 % (11.6-14.8)
[2019-07-07 16:40] LABS: Acetaminophen < 10 ug/mL (10-30); Alanine Aminotransferase 23 IU/L (<35); Albumin 4.8 g/dL (3.5-5.0); Albumin Globulin Ratio 1.3 (1.0-2.8); Alkaline Phosphatase 77 U/L (38-126); Aspartate Aminotransferase 41 IU/L (14-36); BUN Creatinine Ratio 15.7 (6-22); Bilirubin Total 0.6 mg/dL (0.2-1.3); Blood Urea Nitrogen 11 mg/dL (7-17); Calcium 9.5 mg/dL (8.4-10.2); Carbon Dioxide 26 mmol/L (22-32); Chloride 97 mmol/L (98-107); Estimated Glomerular Filt Rate > 60.0 mL/min (>60); Ethanol (ETOH) < 10 mg/dL; Globulin 3.8 g/dL (1.7-4.1); Glucose 114 mg/dL (70-100); HEMOLYSIS < 15 (0-50); Potassium 3.3 mmol/L (3.4-5.1); Salicylate < 1.0 mg/dL (<20); Sodium 138 mmol/L (137-145); Total Protein 8.6 g/dL (6.3-8.2)
[2019-07-07 17:04] LABS: Free T4, Direct Thyroxine 0.82 ng/dL (0.78-2.19)
[2019-07-07 17:18] LABS: Thyroid Stimulating Hormone 0.41 uIU/mL (0.47-4.68)
--- NOTE | 2019-07-07 17:29 | PC.NURSE ---
Pt states that her anxiety is getting worse. Jacob aware
--- NOTE | 2019-07-07 18:17 | PC.NURSE ---
patient requested her shoes, i explained that it is policy to keep the belongings safely locked. I said all her items will be returned at discharge or transfer. patient asked to be discharged you aren't helping my anxiety anyway i told her i'd get the provider BHUMIKA James.
[2019-07-07] MEDS: POTASSIUM CHLORIDE 20 MEQ TAB 40 MEQ PO (18:33)
[2019-07-07 18:38] VITALS: BP 147/69; PULSE 88; RESP 18; O2SAT 98
--- NOTE | 2019-07-08 00:54 | ED_ITS ---
HPI - Psych <DEEPIKA Taylor - Last Filed: 07/08/19 01:23> General Chief Complaint: Psychiatric Symptoms Stated Complaint: states having crazy thoughts Time Seen by Provider: 07/07/19 16:29 Source: patient Mode of arrival: Ambulatory Limitations: no limitations History of Present Illness HPI Narrative: Patient is a 54-year-old female, smoker, who presents to ED with her caregiver, Maria Guadalupe with chief complain of suicidal ideation and homicidal ideation which occurred today. Patient reports she had bad thoughts due to her chronic pain with MS and migraine headaches. Patient stays I'm not myself and have many negative thoughts. She states she was afraid of with the feeli ngs which she does not want to do to herself. She states I'm tired of being in pain and what's the point of living?. Patient had suicidal ideation by cutting her throat with the disposable razor and also homicidal ideation of hurting random person in the store so that Conley could kill her. Patient states her quality of life is very minimal due to chronic pain that she experienced. She was removed referred to pain management 2-3 years ago but no significant improvement was seen in her chronic pain since this was counseling type of therapy instead of medication or medical treatment. Patient states nvyh-pxl-gplqqwe Tylenol, Motrin, Toradol injections not doing anything for the pain and this has been exacerbating her anxiety as well. Patient states in the past nasal spray of state all worked very well with her headache. She states she lives with her spouse at home who is very helpful and takes good care of her. She is currently taking antidepressant, Citalopram, and muscle relaxant, Soma. Patient reports she currently has counseling service with social media developerCaitlin from [facility] [employer]. Patient denies .alcohol or other recreational drug use. Related Data Home Medications Medication Instructions Recorded Confirmed calcium carbonate [Tums] 500 mg PO BIDP PRN #0 05/27/17 07/07/19 cholecalciferol (vitamin D3) 50,000 unit PO QWEEK 04/22/18 07/07/19 50,000 unit capsule lactulose 10 gram oral packet 20 gram PO BID 04/22/18 07/07/19 promethazine 25 mg tablet 25 mg PO Q6H PRN tab 10/11/18 12/26/19 phenytoin sodium extended 100 mg PO DAILY 07/07/19 07/07/19 Previous Rx's Medication Instructions Recorded polyethylene glycol 3350 [Miralax] 17 gm PO QDAY #1 bot 07/30/17 ranitidine HCl 150 mg capsule 150 mg PO BID #60 cap 11/27/17 albuterol sulfate 90 mcg/actuation 2 puff INHALATION QIDP PRN #2 ea 11/08/18 aerosol inhaler docusate sodium 250 mg capsule 250 mg PO BID #60 cap 11/08/18 ferrous sulfate 325 mg (65 mg 325 mg PO DAILY #30 tab 11/08/18 iron) tablet meclizine 25 mg chewable tablet 25 mg PO DAILY PRN #30 tab 11/08/18 trazodone 100 mg tablet 200 mg PO BEDTIME PRN #60 tab 11/08/18 omeprazole 40 mg capsule,delayed 40 mg PO DAILY #30 cap 12/13/18 release fremanezumab-vfrm 225 mg/1.5 mL 225 mg SUBCUT QMONTH #1.5 ml 01/21/19 subcutaneous syringe zonisamide 25 mg capsule 25 mg PO DAILY #120 cap 01/21/19 gabapentin 300 mg capsule 300 mg PO Q12H #180 cap 03/04/19 zolmitriptan 5 mg nasal spray 1 spray NASAL ONCE #6 each 04/25/19 Allergies Allergy/AdvReac Type Severity Reaction Status Date / Time droperidol [DROPERIDOL] Allergy Severe throat Verified 06/27/19 15:38 swelling sumatriptan [From IMITREX] Allergy Severe throat Verified 06/27/19 15:38 swelling prochlorperazine Allergy Unknown Verified 06/27/19 15:38 [From COMPAZINE] Iodine and Iodide Containing Allergy Verified 06/27/19 15:38 Produc Review of Systems <DEEPIKA Taylor - Last Filed: 07/08/19 01:23> Review of Systems Narrative: General: Denies fever, chills, fatigue, malaise, sweats. HEENT: Denies sinus pain, ear pain, sore throat, difficulty swallowing, dizziness. Respiratory: Denies dyspnea, cough, wheezing, hemoptysis, sputum. Cardiovascular: Denies chest pain, palpitations, orthopnea, edema. Gastrointestinal: Denies nausea, vomiting, abdominal pain, diarrhea, constipation, melena. : Denies dysuria, frequency, incontinence, hematuria, urinary retention. Musculoskeletal: Denies weakness, joint pain or bony pain. Skin: Denies rash, skin lesions, or other. Neurologic: Reports chronic migraine headache and fibromyalgia. Denies weakness, numbness, change in speech, confusion, seizures, incoordination. Psychiatric: Reports suicidal ideation and homicidal ideation from her chronic pain. 12-point review of systems is negative except for those stated above. Patient History <DEEPIKA Taylor - Last Filed: 07/08/19 01:23> Social History (Updated 07/08/19 @ 01:06 by DEEPIKA Taylor) Smoking Status: Current some day smoker alcohol intake: former substance use type: does not use Smoking Status: Current some day smoker alcohol intake frequency: 0-2 drinks per day Substance Use Type: does not use Exam <DEEPIKA Taylor - Last Filed: 07/08/19 01:23> Narrative Exam Narrative: General appearance: well developed, well nourished, in no acute distress. Head: normocephalic, atraumatic, no scalp lesions, non-tender. ENT: Bilateral auditory canals and tympanic membranes clear. Hearing grossly intact. Nose without bleeding, purulent discharge, septal hematoma or deviation. Turbinate without erythema or swelling. Facial sinuses nontender to palpate. Mucous membrane moist, no mucosal lesion. Throat without erythema, tonsillar hypertrophy or exudate. Uvula in midline, airway patent. Neck/Thyroid: neck supple, full range of motion, no visible masses or meningeal signs. No JVD, non-tender without lymphadenopathy. Skin: no suspicious rashes, lesions over visible areas. Warm and dry and a ppropriate color for ethnicity. Heart: no clubbing, no cyanosis, no edema. S1 and S2 normal. RRR w/o murmurs, clicks, or bruits. Lungs: Breathing even and unlabored. No stridor. No accessory muscles used. Able to speak in full sentences. Chest: normal shape and expansion. Abdomen: non-obese, non-distended. Neurologic: alert and oriented. Cognitive exam, PROCESS OPERATOR and PNS grossly intact on informal exam. Psych: good eye contact, normal affect. Initial Vital Signs Initial Vital Signs: Vital Signs Temperature 97.2 F L 07/07/19 15:33 Pulse Rate 94 H 07/07/19 15:33 Respiratory Rate 16 07/07/19 15:33 Blood Pressure 146/88 H 07/07/19 15:33 Pulse Oximetry 97 07/07/19 15:33 Psych Appearance: grossly normal Mental Status: mental status grossly normal Speech and Movement: speech and movement normal Mood: anxious mood and irritable mood Affect: irritable affect Attitude: cooperative Thought Process: normal Thought Content: no compulsions, no delusions and no hallucinations Judgment: fair <Jade Ken DO - Last Filed: 07/08/19 07:37> Initial Vital Signs Initial Vital Signs: Vital Signs Temperature 97.2 F L 07/07/19 15:33 Pulse Rate 94 H 07/07/19 15:33 Respiratory Rate 16 07/07/19 15:33 Blood Pressure 146/88 H 07/07/19 15:33 Pulse Oximetry 97 07/07/19 15:33 Scores <DEEPIKA Taylor - Last Filed: 07/08/19 01:23> GCS [place] coma scale eye opening: Spontaneous Vanessa coma scale verbal response: Orientated Vanessa coma scale motor response: Obey commands [place] coma scale total score: 15 Course <DEEPIKA Taylor - Last Filed: 07/08/19 01:23> Orders Ordered: Discontinued Medications Potassium Chloride (Klor-Con M20) 40 meq PO NOW ONE Stop: 07/07/19 18:15 Last Admin: 07/07/19 18:29 Dose: Not Given Documented by: [facility] Potassium Chloride (Klor-Con M20) 40 meq PO NOW ONE Stop: 07/07/19 18:28 Last Admin: 07/07/19 18:33 Dose: 40 meq Documented by: [facility] Vital Signs Vital signs: Vital Signs - 8 hr 07/07/19 18:38 Pulse Rate 88 Respiratory Rate 18 Blood Pressure [Left Arm] 147/69 H Pulse Oximetry 98 <Jade Ken DO - Last Filed: 07/08/19 07:37> Orders Ordered: Discontinued Medications Potassium Chloride (Klor-Con M20) 40 meq PO NOW ONE Stop: 07/07/19 18:15 Last Admin: 07/07/19 18:29 Dose: Not Given [facility] Potassium Chloride (Klor-Con M20) 40 meq PO NOW ONE Stop: 07/07/19 18:28 Last Admin: 07/07/19 18:33 Dose: 40 meq Documented by: CARIN Vital Signs Vital signs: Vital Signs - 8 hr 07/07/19 18:38 Pulse Rate 88 Respiratory Rate 18 Blood Pressure [Left Arm] 147/69 H Pulse Oximetry 98 MDM - Psych <Jacob DEEPIKA Cameron - Last Filed: 07/08/19 01:23> Differential Diagnosis Differential diagnosis: Likely suicidal ideation, depression, acute anxiety and other (Homicidal ideation) Medical Records Attestation: I reviewed the patient's medical records. Lab Data Attestation: I reviewed the patient's lab results. Result diagrams: 07/07/19 16:20 07/07/19 16:20 Labs: Lab Results 07/07/19 07/07/19 07/07/19 Range/Units 16:20 16:20 16:20 WBC 5.0 (4.5-11.0) X10^3/uL RBC 3.94 L (4.0-5.2) X10^6/uL Hgb 9.2 L (12.0-16.0) g/dL Hct 29.1 L (36-46) % MCV 73.9 L (80-100) fL MCH 23.3 L (26-34) PG MCHC 31.5 (30-36) % RDW 19.9 H (11.6-14.8) % Plt Count 571 H (150-400) X10^3/uL Neut % (Auto) 64.4 (50-75) % Lymph % (Auto) 26.1 (25-40) % [place] % (Auto) 6.2 (3-14) % Eos % (Auto) 0.4 L (2-4) % Baso % (Auto) 2.9 H (0-2) % Neut # (Auto) 3200 (7630-3356) /uL Lymph # (Auto) 1300 (4975-9268) /uL [place] # (Auto) 300 (0-900) /uL Eos # (Auto) 0 (0-450) /uL Baso # (Auto) 100 (0-100) /uL Sodium 138 (137-145) mmol/L Potassium 3.3 L (3.4-5.1) mmol/L Chloride 97 L (98-107) mmol/L Carbon Dioxide 26 (22-32) mmol/L BUN 11 (7-17) mg/dL Creatinine 0.70 (0.52-1.04) mg/dL Estimated GFR > 60.0 (>60) mL/min BUN/Creatinine Ratio 15.7 (6-22) Glucose 114 H (70-100) mg/dL Calcium 9.5 (8.4-10.2) mg/dL Total Bilirubin 0.6 (0.2-1.3) mg/dL AST 41 H (14-36) IU/L ALT 23 (<35) IU/L Alkaline Phosphatase 77 (38-126) U/L Total Protein 8.6 H (6.3-8.2) g/dL Albumin 4.8 (3.5-5.0) g/dL Globulin 3.8 (1.7-4.1) g/dL Albumin/Globulin Ratio 1.3 (1.0-2.8) TSH 0.41 L D (0.47-4.68) uIU/mL Free T4 0.82 (0.78-2.19) ng/dL Salicylates < 1.0 (<20) mg/dL Acetaminophen < 10 L (10-30) ug/mL Ethyl Alcohol < 10 ( - 10) mg/dL MDM Narrative Medical decision making narrative: 54 year female who presents to ED voluntarily with homicidal and suicidal ideation and requesting mental health evaluation and inpatient hospitalization in mental have the facility. Patient reports she has been depressed and feeling anxious and negative thoughts from suffering with chronic migraine headaches and fibromyalgia. Patient frequent to ED for chronic pain and migraine treatment with IV fluid, Ativan, narcotic medications in the past. Patient offered Tylenol and toward our injection for her headache treatment in ED while patient is waiting for mental health evaluation and pending transfer to mental health facility. Patient became quite upset with the offer and states it does nothing to help her pain. Then, patient requests to leave ED since she can take her medication at home and rest. The caregiver states someone will be at home remaining with patient all time. Patient informed she may benefit for a referral to pain management clinic to manage her chronic pain syndrome and migraine headache from her primary care physician. Patient advised to return to ED if SI or HI recurs and also to call crisis line as needed and caregiver states they do have Resource phone numbers. Patient requests something for her anxiety and she was offered with hydroxyzine. Patient states she had used in the past and and she thinks she has hydroxyzine at home. Patient verbalized understanding agrees with the treatment plan. Patient was medicated with 40 mEq of potassium chloride due to mildly decrease K of 3.3. Patient was unable to provide urine sample. Other lab tests were unremarkable. <Jade Ken, - Last Filed: 07/08/19 07:37> Lab Data Labs: Lab Results 07/07/19 07/07/19 07/07/19 Range/Units 16:20 16:20 16:20 WBC 5.0 (4.5-11.0) X10^3/uL RBC 3.94 L (4.0-5.2) X10^6/uL Hgb 9.2 L (12.0-16.0) g/dL Hct 29.1 L (36-46) % MCV 73.9 L (80-100) fL MCH 23.3 L (26-34) PG MCHC 31.5 (30-36) % RDW 19.9 H (11.6-14.8) % Plt Count 571 H (150-400) X10^3/uL Neut % (Auto) 64.4 (50-75) % Lymph % (Auto) 26.1 (25-40) % [place] % (Auto) 6.2 (3-14) % Eos % (Auto) 0.4 L (2-4) % Baso % (Auto) 2.9 H (0-2) % Neut # (Auto) 3200 (2908-5553) /uL Lymph # (Auto) 1300 (5773-1120) /uL [place] # (Auto) 300 (0-900) /uL Eos # (Auto) 0 (0-450) /uL Baso # (Auto) 100 (0-100) /uL Sodium 138 (137-145) mmol/L Potassium 3.3 L (3.4-5.1) mmol/L Chloride 97 L (98-107) mmol/L Carbon Dioxide 26 (22-32) mmol/L BUN 11 (7-17) mg/dL Creatinine 0.70 (0.52-1.04) mg/dL Estimated GFR > 60.0 (>60) mL/min BUN/Creatinine Ratio 15.7 (6-22) Glucose 114 H (70-100) mg/dL Calcium 9.5 (8.4-10.2) mg/dL Total Bilirubin 0.6 (0.2-1.3) mg/dL AST 41 H (14-36) IU/L ALT 23 (<35) IU/L Alkaline Phosphatase 77 (38-126) U/L Total Protein 8.6 H (6.3-8.2) g/dL Albumin 4.8 (3.5-5.0) g/dL Globulin 3.8 (1.7-4.1) g/dL Albumin/Globulin Ratio 1.3 (1.0-2.8) TSH 0.41 L D (0.47-4.68) uIU/mL Free T4 0.82 (0.78-2.19) ng/dL Salicylates < 1.0 (<20) mg/dL Acetaminophen < 10 L (10-30) ug/mL Ethyl Alcohol < 10 ( - 10) mg/dL Discharge Plan Departure Patient Disposition: Home Clinical Impression: Chronic pain syndrome Migraine Qualifiers: Migraine type: unspecified Status migrainosus presence: without status migrainosus Intractability: not intractable Qualified Code(s): G43.909 - Migraine, unspecified, not intractable, without status migrainosus Discharge Date/Time: 07/07/19 18:45 Activity Restrictions/Additional Instructions: You have been diagnosed with [chronic pain syndrome and headache. Suicidal ideation and homocidial ideation from chronic headache. You have declined to stay in the hospital and wait for evaluation for possible transfer to mental health facility. What to do: *Take your medications as directed. You can continue to take care medications for you're symptoms *Follow up with your primary care provider in 2-3 days, call for an appointment. Also, please contact crisis line contact number that you already for the assistance. Let them know you were seen in the ED and that we asked you to be seen in follow up. *Return to ED if you have any new, worsening, or concerning symptoms, such as [chest pain, breathing difficulty, speech difficulty, weakness to your limbs, recurring suicidal ideation and homicidal ideation.]. Prescriptions: No Action cholecalciferol (vitamin D3) 50,000 unit capsule 50,000 unit PO QWEEK RF: 0 lactulose 10 gram packet 20 gram PO BID RF: 0 promethazine 25 mg tablet 25 mg PO Q6H PRN (Reason: Nausea) RF: 0 calcium carbonate [Tums] 500 MG tablet,chewable 500 mg PO BIDP PRN (Reason: Heartburn) Qty: 0 RF: 0 polyethylene glycol 3350 [Miralax] 17 GM powder in packet 17 gm PO QDAY Qty: 1 RF: 3 ranitidine HCl 150 mg capsule 150 mg PO BID Qty: 60 RF: 0 albuterol sulfate [Ventolin HFA] 90 mcg/actuation HFA aerosol inhaler 2 puff INHALATION QIDP PRN (Reason: shortness of breath or wheezing) Qty: 2 RF: 3 docusate sodium 250 mg capsule 250 mg PO BID Qty: 60 RF: 3 ferrous sulfate [FeroSul] 325 mg (65 mg iron) tablet 325 mg PO DAILY Qty: 30 RF: 5 meclizine 25 mg tablet,chewable 25 mg PO DAILY PRN (Reason: dizziness) Qty: 30 RF: 2 trazodone 100 mg tablet 200 mg PO BEDTIME PRN (Reason: insomnia) Qty: 60 RF: 5 omeprazole 40 mg capsule,delayed release(DR/EC) 40 mg PO DAILY Qty: 30 RF: 2 gabapentin 300 mg capsule 300 mg PO Q12H Qty: 180 RF: 0 phenytoin sodium extended 100 mg capsule 100 mg PO DAILY RF: 0 Ajovy 225 mg/1.5 mL syringe 225 mg SUBCUT QMONTH Qty: 1.5 RF: 11 zonisamide 25 mg capsule 25 mg PO DAILY Qty: 120 RF: 2 Zomig 5 mg spray,non-aerosol 1 spray NASAL ONCE Qty: 6 RF: 1 Referrals: Sonya Short DO [Primary Care Provider] -
== END 2019-07-07 18:45 | disposition home or self-care (01) ==
PROVIDERS: Emergency Medicine; Emergency Provider Nurse Practitioner Family; PCP Family Medicine
DX: G89.4 Chronic pain syndrome (principal); G43.909 Migraine, unspecified, not intractable, without status migrainosus; R45.851 Suicidal ideations; R45.850 Homicidal ideations; E87.6 Hypokalemia
CPT/HCPCS: 36415; 80053; 80320; 80329; 84439; 84443; 85025; 99283; 99284; G0480